=== PATIENT | female | born 2000 | race Caucasian/White ===

== ENCOUNTER 2024-10-08 14:42 | Outpatient (AMB) | payer MEDICAID, SELFPAY ==
[2024-10-08 15:18] VITALS: BP 136/81; PULSE 82; RESP 17; TEMP 37.1; O2SAT 18; BMI 34.8
--- NOTE | 2024-10-08 15:18 | OBCLNT_ITS ---
Vital Signs 10/08/24 15:18 Height 1.55 m Height Method Stated Weight 83.631 kg Weight Measurement Method Standing Scale BMI 34.8 BP 136/81 H Blood Pressure Source Automatic Cuff Blood Pressure Location Right Upper Arm Position Sitting Respiration 17 Pulse 82 Pulse Source Monitor Temp 98.7 F Temp Source Temporal Artery Scan Pulse Oximetry (%) 18 L Oxygen Delivery Method Room Air Allergies/Home Meds Allergies & Medications Allergies No Known Allergies Allergy (Verified 08/22/22 09:45) Medication Reconciliation metformin 500 mg tablet 500 mg PO BIDWMEAL 30 days #60 tabs 06/14/21 [Rx Confirmed 10/08/24] blood sugar diagnostic (Accu-Chek Joi Plus test strips) #50 ea 08/25/22 [Rx Confirmed 10/08/24] lancets 17 gauge (Acti-Philip Lancets) #100 ea 08/25/22 [Rx Confirmed 10/08/24] propranolol 10 mg tablet 10 mg PO QID 30 days #120 tabs 08/25/22 [Rx Confirmed 10/08/24] insulin glargine 100 unit/mL (3 mL) subcutaneous pen (Lantus Solostar U-100 Insulin) 50 unit (0.5 mL) subcut QPM 30 days #15 mL 10/08/24 [Rx Confirmed 10/08/24] Intake Visit Data Collection New Patient or Established: New Patient ([facility]) Reason for Visit:: OB TRANSFER Seen by Clinical Staff ONLY (RN/MA): No Alodize Machine Operator Required: No Do You Feel Safe at Home: Yes Authorities Contacted: N/A PCP or OBGYN visit in last 3 months: No Hx Now: Yes Are you currently on any form of Control: No Pain Present Currently: No Pain Scale Used: Ambrocio-Washburn/Numerical Pain scale:: 0 Smoking Status Smoking Status: Never smoker Questionnaires Covid-19 Vaccine Questionnaire Has patient been vacinated for Covid-19 Have you been vacinated for Covid-19: No PHQ-9 PHQ-2 Over the last 2 weeks, how often have you been bothered by any of the following problems? 1. Little interest or pleasure in doing things: not at all 2. Feeling down, depressed, or hopeless: not at all Total score: 0 PHQ-9 3. Trouble falling or staying asleep, or sleeping too much: Not at all 4. Feeling tired or having little energy: Not at all 5. Poor appetite or overeating: Not at all 6. Feeling bad about yourself - or that you are a failure or have let yourself or your family down: Not at all 7. Trouble concentrating on things, such as reading the newspaper or watching television: Not at all 8. Moving or speaking so slowly that other people could have noticed? - Or the opposite - being so fidgety or restless that you have been moving around a lot more than usual: not at all 9. Thoughts that you would be better off or of hurting yourself in some way: Not at all Total score: 0 If you checked off any problems, how difficult have these problems made it for you to do your work, take care of things at home, or get along with other people?: not difficult at all Source: Developed by Drs. Khurram Mireles, Eula Verdugo, Ashok Norton and colleagues, with an educational shannan from [employer]. Depression screen completed yes Social History Living Situation History Marital Status: Lives With: Family Housing: House Tobacco History Smoking Status: Never smoker Second Hand Smoke Exposure: No Alcohol History Alcohol Intake: Never Domestic Abuse History Do You Feel Safe at Home: Yes History of Present Illness HPI Narrative Lisa Martinez, , presents for routine visit at 30 weeks gestation. Patient has a history of prior delivery. No contractions, LOF, VB and reports good FM. Denies BAER, VC, and epigastric pain. - Lisa Martinez is a 23-year-old female at 30 weeks 0 days gestation presenting for transfer of care from Dr. Walsh. - Obstetric history: - Two previous C-sections (2019 and 2021) - Current : - JAMES: 12/17/2024 - LMP: 03/11/2024 - Consistent with 1st trimester ultrasound - Medical history: - Type 2 diabetes mellitus - Diagnosed approximately 10 years ago - Currently on insulin therapy - Meal-time insulin: 12 units, 3 times daily (36 units total) - Long-acting insulin (Lantus): 45 units at night - Blood glucose levels: - Post-prandial: 150-160 mg/dL - Fasting: up to 140 mg/dL - Chronic hypertension - Current medication: Labetalol 100 mg twice daily - Also taking aspirin - Blood pressure reported as good currently - Denies history of pre-eclampsia in previous pregnancies - 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: Past Medical History Past Medical History: No Hx Neurological Disorders, No Hx Hypothyroidism, No Hx Hyperthyroidism, No Hx Breast Cancer, No Hx Cardiac Disorders, No Hx Hypertension, No Hx Cancer, No Hx Blood Disorders, No Hx Anemia, No Hx Gastrointestinal Disorders, No Hx Renal Disease, No Hx Diabetes Mellitus Type 1 and Yes Hx Diabetes Mellitus Type 2 OB Initial Visit OB Flowsheet OB Flowsheet Initial Weight: Not Recorded Date -?-?-?-?-?-?-?-?-?-?-?-?- EGA Weight BP Alb Glu CTX Pres Fundal ht FHR Mov Dilation Station Effacement Hx Notes Visit Note 10/08/24 -?-?-?-?-?-?-?-?-?-?-?-?- 30w 0d 83.631 kg 136/81 absent 30 150 ac tive 30w0d, , hx of 2 prior C- sections, DM2 on insulin (meal-time 12u TID, Lantus 45u QHS), HTN on labetalol 100 BID + ASA. Reports good FM, no CTX/LOF/VB. FHR 150. BG logs: fasting to 140, postprandial 150?160. Plan: inc rease Lantus to 50u QHS, continue meal insulin, f/u in 1 week, continue twice weekly monitoring, plan C/S 37?38w, continue labetalol, ASA, vitamins, f/u [facility]. Rx sent to [facility]. Menstrual History Menstrual reliability: definite Flow: normal Menstrual regularity: regular Monthly: Yes Age at menarche: 11 On control pills at conception: No OB History : 3 Para: 2 Hx # Pregnancies: 0 Hx Total # of Abortions (Spontaneous & Elective): 0 # of Living Children: 2 Delivery History 1st : Child's name: MARY AGUIRRE date: 08/06[birth year]19 sex: female Gestational age at delivery (weeks): 37 Delivery type: History of depression before or after : No 2nd : Child's name: SANTY AGUIRRE date: 06/12/21 sex: male Gestational age at delivery (weeks): 37 Delivery type: weight (lbs): 3175.147 g History of depression before or after : No Infection History & Risk Evaluation History of STDs: none HIV risk evaluation: low risk Hepatitis B risk evaluation: low risk Patient or partner has history of Genital Herpes: No Varicella/chicken pox status: unknown Genetic Screening & History Genetic Screening/Teratology Counseling - Includes patient, baby's father, or anyone in either family with: 1. Patient's age 35 years or older as of estimated date of delivery: No 2. Thalassemia (Hungarian, Persian, Mediterranean, or Background); MCV less than 80: No 3. Neural Tube Defect (Meningomyelocele, Spina Bifida, or Anencephaly): No 4. Congenital Heart Defect: No 5. Down Syndrome: No 6. Donaldo-Sachs (Ashkenazi Buddhist, Cajun, Hebrew Andorran): No 7. Raudel Disease (Ashkenazi Buddhist): No 8. Familial Dysautonomia (Ashkenazi Buddhist): No 9. Sickle Cell Disease or Trait (): No 10. Hemophilia or other blood disorders: No 11. Muscular Dystrophy: No 12. Cystic Fibrosis: No 13. Taylor's Chorea: No 14. Mental Retardation/Autism: No 15. Other inherited genetic or chromosomal disorder: No 16. Maternal Metabolic Disorder (EG,TYPE 1 Diabetes, PKU): No 17. Patient or baby's father had a child with defects not listed above: No 18. Recurrent loss or a stillbirth: No 19. Medications (including supplements, vitamins, herbs or otc drugs)/illic it/recreational drugs/alcohol since last menstrual period: No 20. Any other: No Infection History 1. Live with someone with TB or exposed to TB: No 2. Rash or viral illness since last menstrual period: No 3. Hepatitis B,C: No Other (see comments) Source: [employer] Exam General General Appearance: alert, in no apparent distress and healthy appearing Head Head exam: atraumatic Neck Neck exam: Present normal inspection and trachea midline Chest Chest inspection: Present normal inspection and symmetric chest wall rise External exam: Present normal external exam; Absent tenderness Neuro Neurological exam: Present oriented X3 Psych Psychiatric exam: Present normal affect and normal mood Office Procedures OB Clinic LOC & Office Proc's Nursing/Assessment Patient Status: Initial/New Patient OB Clinic Nursing Assessment: Medication Reconciliation, Update PMH in EMR and Vital Signs OB Clinic Coordination of Care: Complex Care and Chronic Disease 1-5, Consent,records obtained, informed consent, Education Simp Pt/Fam, Results/Orders obtained and Staff clarify orders Special Needs: Heart tones New Patient Charge New Patient Point Assignment: [id number] New Patient Point Charge: AIRLINE CAPTAIN Level 4 ([id number]) Assessment & Plan Diagnosis / Problem List (1) Supervision of high risk , unspecified, second trimester: Status: Acute (2) Modified White class B pregestational diabetes mellitus: Status: Acute Plan Problem List - Type 2 Diabetes Mellitus - Chronic hypertension - , third trimester - History of two previous sections Assessment 23-year-old at 30 weeks 0 days gestation with history of 2 previous C- sections, presenting with multiple high-risk conditions. Patient has pre- existing Type 2 Diabetes Mellitus, requiring significant insulin therapy (currently on 81 units daily: 45 units long-acting at night, 12 units short- acting with meals). Blood glucose levels are suboptimal with fasting levels up to 140 mg/dL and postprandial levels 150-160 mg/dL. Patient also has chronic hypertension, currently managed with labetalol 100 mg BID and aspirin. Blood pressure is currently stable on this regimen. assessment shows normal heart rate of 150 bpm. Patient is being followed by maternal- medicine at [facility] for growth monitoring. Plan - Increase long-acting insulin (Lantus) from 45 units to 50 units at night - Continue current meal-time insulin at 12 units per meal - Follow up in one week to reassess blood sugar levels and adjust insulin as needed - Continue twice weekly monitoring at the hospital until delivery - Plan for between 37 and 38 weeks gestation due to diabetes - Continue current blood pressure medication (Labetalol 100mg twice daily) - Continue aspirin - Continue vitamins - Attend upcoming appointment at [facility] for growth monitoring - New prescription for increased insulin to be sent to [facility] 1. Progress Reviewed gestational age (30 weeks and 0 days), growth, and heart rate (150 bpm). Planned frequent visits (every 2 weeks until 36 weeks, then weekly). 2. Instructed patient to monitor movements and report decreases immediately. 3. Testing Counseled on routine third-trimester labs per guidelines. Discussed potential need for ultrasound or monitoring based on risk facto rs. 4. Preeclampsia Precaution Educated on preeclampsia signs: severe headache, vision changes, right upper quadrant pain, sudden swelling. Advised urgent reporting of symptoms and discussed blood pressure monitoring if high risk. 5. Labor Precautions Reviewed labor signs: regular contractions, pelvic pressure, back pain, bleeding, or fluid leakage. Instructed to seek immediate care for these symptoms. 6. Lifestyle and Delivery Preparation Reinforced vitamins, nutrition, and safe activity. Discussed plan, pain management, and . Advised on labor preparation (e.g., hospital bag) and expectations. 7. Psychosocial Support Assessed emotional well-being and offered resources for mental health or parenting support.
== END 2024-10-08 15:43 | disposition home or self-care (01) ==
LOC: HODSOBC 14:42
PROVIDERS: PCP Specialist; Referring Provider Specialist; Supervising Provider Obstetrics & Gynecology; Visit Provider Obstetrics & Gynecology
DX: O09.893 Supervision of other high risk pregnancies, third trimester (principal); O24.113 Pre-existing type 2 diabetes mellitus, in pregnancy, third trimester; O10.913 Unspecified pre-existing hypertension complicating pregnancy, third trimester; O09.293 Supervision of pregnancy with other poor reproductive or obstetric history, third trimester; O34.219 Maternal care for unspecified type scar from previous cesarean delivery; Z3A.30 30 weeks gestation of pregnancy; Z79.4 Long term (current) use of insulin; Z79.899 Other long term (current) drug therapy; Z79.82 Long term (current) use of aspirin
CPT/HCPCS: 99204; G0463

== ENCOUNTER 2024-10-14 08:38 | Outpatient (AMB) | payer MEDICAID, SELFPAY ==
[2024-10-14 08:59] VITALS: BP 115/75; PULSE 90; RESP 19; TEMP 36.9; O2SAT 98; BMI 34.0
--- NOTE | 2024-10-14 08:59 | AMB.OBVISIT ---
Vital Signs 10/14/24 08:59 Height 1.55 m Height Method Stated Weight 81.873 kg Weight Measurement Method Standing Scale BMI 34.0 BP 115/75 Blood Pressure Source Automatic Cuff Blood Pressure Location Right Upper Arm Position Sitting Respiration 19 Pulse 90 Pulse Source Monitor Temp 98.4 F Temp Source Temporal Artery Scan Pulse Oximetry (%) 98 Oxygen Delivery Method Room Air Allergies/Home Meds Allergies & Medications Allergies No Known Allergies Allergy (Verified 08/22/22 09:45) Intake Visit Data Collection New Patient or Established: Established Patient (seen at [facility] within 3 years) Reason for Visit:: FOLLOW UP OB CARE Seen by Clinical Staff ONLY (RN/MA): No Commercial Interior Designer Required: No Do You Feel Safe at Home: Yes Authorities Contacted: N/A Primary Care Provider: DR ADAMS PCP or OBGYN visit in last 3 months: Yes Date of Last PCP or OBGYN visit: 10/08/24 Hx Now: Yes Are you currently on any form of Control: No Pain Present Currently: No Smoking Status Smoking Status: Never smoker Questionnaires PHQ-9 PHQ-2 Over the last 2 weeks, how often have you been bothered by any of the following problems? 1. Little interest or pleasure in doing things: not at all PHQ-9 8. Moving or speaking so slowly that other people could have noticed? - Or the opposite - being so fidgety or restless that you have been moving around a lot more than usual: not at all Source: Developed by Drs. Khurram Mireles, Eula Verdugo, Ashok Norton and colleagues, with an educational shannan from [employer]. 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 No contractions, LOF, VB and reports good FM. Denies BAER, VC, and epigastric pain. - Lisa Martinez is a female in her third trimester with gestational diabetes, here for a follow-up visit. - Blood sugar control: - Reports improved blood sugar levels after recent insulin adjustment - Levels now more than 113 , previously lower - Insulin dose change made the night before the visit - status: - Reports baby is active - Denies contractions - Other symptoms: - Denies any other issues - Treatment adherence: - Performing insulin injections as prescribed - Injection sites show minimal bruising, indicating good technique - Monitoring: - Patient instructed to write down blood sugar logs and bring to next visit - Advised to note unusual high numbers and corresponding food intake Care OB Visit Log OB Flowsheet Initial Weight: Not Recorded Date <del>?</del> EGA Weight BP Alb Glu CTX Pres Fundal ht FHR Mov Dilation Station Effacement Hx Notes Visit Note 10/08/24 <del>?</del> 30w 0d 83.631 kg 136/81 absent 30 150 active 30w0d, , hx of 2 prior C-sections, DM2 on insulin (meal-time 12u TID, Lantus 45u QHS), HTN on labetalol 100 BID + ASA. Reports good FM, no CTX/LOF/VB. FHR 150. BG logs: fasting to 140, postprandial 150?160. Plan: increase Lantus to 50u QHS, continue meal insulin, f/u in 1 week, continue twice weekly monitoring, plan C/S 37?38w, continue labetalol, ASA, vitamins, f/u [facility]. Rx sent to [facility]. 10/14/24 <del>?</del> 30w 6d 81.873 kg 115/75 absent unknown 32 155 active Lisa Martinez, , presents at 30w6d for routine care. No CTX, LOF, VB, FM good. Denies BAER, VC, epigastric pain. GDM on insulin with recent dose increase; reports improved sugars now >113. Injections done correctly with minimal bruising. FHR 155. CBC and RPR ordered. Twice weekly monitoring to begin. Plan delivery at 38w if well-controlled, or 37w if not. F/u 1wk with glucose logs, noting any spikes and food intake. JAMES Calculator Estimated Delivery Date Method Current WG Current Estimate 12/17/24 LMP (Certain) 30w 6d Exam General General Appearance: alert, in no apparent distress and healthy appearing Head Head exam: atraumatic Neck Neck exam: Present normal inspection and trachea midline Chest Chest inspection: Present normal inspection and symmetric chest wall rise External exam: Present normal external exam; Absent tenderness Neuro Neurological exam: Present oriented X3 Psych Psychiatric exam: Present normal affect and normal mood Office Procedures OB Clinic LOC & Office Proc's Nursing/Assessment Patient Status: Established Patient OB Clinic Nursing Assessment: BP Monitoring, Medication Reconciliation, Update PMH in EMR and Vital Signs OB Clinic Coordination of Care: Complex Care and Chronic Disease 1-5, Consent,records obtained, informed consent, Lab and Imaging orders and Results/Orders obtained Special Needs: Heart tones Established Patient Charge Established Patient Point Assignment: 125 Established Patient Point Charge: EP Level 4 (120-155) Assessment & Plan Diagnosis / Problem List (1) Maternal care for low transverse scar from previous delivery: Status: Acute (2) Pre-existing type 2 insulin treated diabetes mellitus during : Status: Acute Plan Problem List - Gestational diabetes mellitus - , third trimester Assessment Gestational diabetes mellitus, currently on insulin therapy with improving blood glucose control after recent dose adjustment. Patient reports blood glucose levels have increased from previous readings to >113 mg/dL. Third trimester with normal heart rate of 155 bpm and reported active movement. No contractions or other -related issues noted. Routine labs including CBC and RPR are due. Patient demonstrates proper insulin injection technique with minimal bruising at injection sites. Plan - CBC and RPR ordered for routine anemia and RPR check - Continue current insulin regimen; reassess glucose levels in one week - monitoring at labor and delivery unit twice weekly; patient to await call for appointments - Aim for delivery at 38 weeks if sugars are well-controlled, or 37 weeks if not - Follow up in one week to review glucose logs - Patient instructed to record glucose logs and note any unusual high numbers along with corresponding food intake 1. Progress Reviewed gestational age, growth, and heart rate. Planned frequent visits (every 2 weeks until 36 weeks, then weekly). 2. Instructed patient to monitor movements and report decreases immediately. 3. Testing Counseled on routine third-trimester labs per guidelines. Discussed potential need for ultrasound or monitoring based on risk factors. 4. Preeclampsia Precaution Educated on preeclampsia signs: severe headache, vision changes, right upper quadrant pain, sudden swelling. Advised urgent reporting of symptoms and discussed blood pressure monitoring if high risk. 5. Labor Precautions Reviewed labor signs: regular contractions, pelvic pressure, back pain, bleeding, or fluid leakage. Instructed to seek immediate care for these symptoms. 6. Lifestyle and Delivery Preparation Reinforced vitamins, nutrition, and safe activity. Discussed plan, pain management, and . Advised on labor preparation (e.g., hospital bag) and expectations. 7. Psychosocial Support Assessed emotional well-being and offered resources for mental health or parenting support.
== END 2024-10-14 09:26 | disposition home or self-care (01) ==
LOC: HODSOBC 08:38
PROVIDERS: PCP Specialist; Referring Provider Specialist; Supervising Provider Obstetrics & Gynecology; Visit Provider Obstetrics & Gynecology
DX: O09.293 Supervision of pregnancy with other poor reproductive or obstetric history, third trimester (principal); O34.211 Maternal care for low transverse scar from previous cesarean delivery; O09.893 Supervision of other high risk pregnancies, third trimester; O24.113 Pre-existing type 2 diabetes mellitus, in pregnancy, third trimester; Z3A.30 30 weeks gestation of pregnancy; Z79.4 Long term (current) use of insulin
CPT/HCPCS: 99214; G0463

== ENCOUNTER 2024-10-20 12:54 | Outpatient (AMB) | payer MEDICAID, SELFPAY ==
[2024-10-20 13:07] VITALS: BP 124/83; PULSE 80; RESP 17; TEMP 36.9; O2SAT 99; BMI 34.6
--- NOTE | 2024-10-20 13:07 | OBCLNT_ITS ---
Vital Signs 10/20/24 13:07 Height 1.55 m Height Method Measured Weight 83.121 kg Weight Measurement Method Standing Scale BMI 34.6 BP 124/83 Blood Pressure Source Automatic Cuff Blood Pressure Location Right Upper Arm Position Sitting Respiration 17 Pulse 80 Pulse Source Monitor Temp 98.4 F Temp Source Temporal Artery Scan Pulse Oximetry (%) 99 Oxygen Delivery Method Room Air Allergies/Home Meds Allergies & Medications Allergies No Known Allergies Allergy (Verified 10/20/24 13:08) Medication Reconciliation metformin 500 mg tablet 500 mg PO BIDWMEAL 30 days #60 tabs 06/14/21 [Rx Co nfirmed 10/20/24] blood sugar diagnostic (Accu-Chek Joi Plus test strips) #50 ea 08/25/22 [Rx Confirmed 10/20/24] lancets 17 gauge (Acti-Philip Lancets) #100 ea 08/25/22 [Rx Confirmed 10/20/24] propranolol 10 mg tablet 10 mg PO QID 30 days #120 tabs 08/25/22 [Rx Confirmed 10/20/24] insulin glargine 100 unit/mL (3 mL) subcutaneous pen (Lantus Solostar U-100 Insulin) 60 unit (0.6 mL) subcut QPM 30 days #18 mL 10/20/24 [Rx] insulin lispro 100 unit/mL subcutaneous pen (Humalog KwikPen (U-100) Insulin) 15 unit (0.15 mL) subcut TID 30 days #13.5 mL 10/20/24 [Rx] mv-mn no.97-folic 180 mcg-dha 25 mg-herb no.293 25 mg chewable tablet (Alive Daily Support ) tab PO 10/20/24 [History Confirmed 10/20/24] Intake Visit Data Collection New Patient or Established: Established Patient (seen at [facility] within 3 years) Reason for Visit:: OBC Consent obtained for Telemed Visit: No Seen by Clinical Staff ONLY (RN/MA): No Machinist/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 1. Little interest or pleasure in doing things: not at all PHQ-9 8. Moving or speaking so slowly that other people could have noticed? - Or the opposite - being so fidgety or restless that you have been moving around a lot more than usual: not at all Source: Developed by Drs. Khurram Mireles, Eula Verdugo, Ashok Norton and colleagues, with an educational shannan from [employer]. 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 Past Medical History: No Hx Neurological Disorders, No Hx Hypothyroidism, No Hx Hyperthyroidism, No Hx Breast Cancer, No Hx Cardiac Disorders, No Hx Hypertension, No Hx Cancer, No Hx Blood Disorders, No Hx Anemia, No Hx Gastrointestinal Disorders, No Hx Renal Disease, No Hx Diabetes Mellitus Type 1 and Yes Hx Diabetes Mellitus Type 2 Care OB Visit Log OB Flowsheet Initial Weight: Not Recorded Date -?-?-?-?-?-?-?-?-?-?-?-?- EGA Weight BP Alb Glu CTX Pres Fundal ht FHR Mov Dilation Station Effacement Hx Notes Visit Note 10/08/24 -?-?-?-?-?-?-?-?-?-?-?-?- 30w 0d 83.631 kg 136/81 absent 30 150 ac tive 30w0d, , hx of 2 prior C- sections, DM2 on insulin (meal-time 12u TID, Lantus 45u QHS), HTN on labetalol 100 BID + ASA. Reports good FM, no CTX/LOF/VB. FHR 150. BG logs: fasting to 140, postprandial 150?160. Plan: inc rease Lantus to 50u QHS, continue meal insulin, f/u in 1 week, continue twice weekly monitoring, plan C/S 37?38w, continue labetalol, ASA, vitamins, f/u [facility]. Rx sent to [facility]. 10/14/24 -?-?-?-?-?-?-?-?-?-?-?-?- 30w 6d 81.873 kg 115/75 absent unknown 32 155 active Lisa Martinez, , presents at 30w6d for routine care. No CTX, LOF, VB, FM good. Denies BAER, VC, epigastric pain. GDM on insulin with recent dose increase; reports imp roved sugars now >113. Injections done correctly with minimal bruising. FHR 155. CBC and RPR ordered. Twice weekly monitoring to begin. Plan delivery at 38w if well-controlled, or 37w if not. F/u 1wk with glucose logs, noting any spikes and food intake. 10/20/24 -?-?-?-?-?-?-?-?-?-?-?-?- 31w 5d 83.121 kg 124/83 absent unknown 32 150 active GDM on insulin, 31w5d. FM+, FHR 150. Fasting BG 113, postprandial 156. Plan: Increase insulin to 60u qHS, 15u meals (? to 12u if lows), await anesthesia appt, f/u 2w, monitor FM, RX sent. JAMES Calculator Estimated Delivery Date Method Current WG Current Estimate 12/17/24 LMP (Certain) 32w 0d Notes Visit Date: 10/20/24 Last Updated by: Julio Love MD - Increase nighttime insulin dose from 50 units to 60 units - Increase mealtime insulin dose from 12 units to 15 units Exam General General Appearance: alert, in no apparent distress and healthy appearing Head Head exam: atraumatic Neck Neck exam: Present normal inspection and trachea midline Chest Chest inspection: Present normal inspection and symmetric chest wall rise External exam: Present normal external exam; Absent tenderness Neuro Neurological exam: Present oriented X3 Psych Psychiatric exam: Present normal affect and normal mood Office Procedures OB Clinic LOC & Office Proc's Nursing/Assessment Patient Status: Established Patient OB Clinic Nursing Assessment: Medication Reconciliation, Update PMH in EMR and Vital Signs OB Clinic Coordination of Care: Complex Care and Chronic Disease 1-5, Consent,records obtained, informed consent, Education Simp Pt/Fam and 4+ Authorizations needed Special Needs: Heart tones Established Patient Charge Established Patient Point Assignment: 130 Established Patient Point Charge: EP Level 4 (120-155) Assessment & Plan Diagnosis / Problem List (1) Pre-existing type 2 insulin treated diabetes mellitus during : Status: Acute (2) Modified White class B pregestational diabetes mellitus: Status: Acute Plan Problem List - Gestational diabetes mellitus - , 31 weeks and 5 days Assessment Patient presents for care at 31 weeks and 5 days gestation with gestational diabetes mellitus. Blood glucose levels are suboptimal with fasting glucose of 113 mg/dL (target <100 mg/dL) and postprandial glucose of 156 mg/dL (target <140 mg/dL). Current insulin regimen consists of 50 units at night and 12 units with meals. heart rate auscultated at 150 bpm, which is within normal range. Patient reports movement. Plan - Increase nighttime insulin dose from 50 units to 60 units - Increase mealtime insulin dose from 12 units to 15 units - Target fasting glucose below 100 mg/dL and postprandial glucose below 140 mg/dL - Monitor baby's movements - Attend anesthesia consultation appointments at the hospital (expected to be scheduled from next week) - Follow up in 2 weeks - New insulin prescription to be sent to pharmacy - If glucose levels drop too much, revert mealtime insulin dose to 12 units 1. Progress Reviewed gestational age, growth, and heart rate. Planned frequent visits (every 2 weeks until 36 weeks, then weekly). 2. Instructed patient to monitor movements and report decreases immediately. 3. Testing Counseled on routine third-trimester labs per guidelines. Discussed potential need for ultrasound or monitoring based on risk factors. 4. Preeclampsia Precaution Educated on preeclampsia signs: severe headache, vision changes, right upper quadrant pain, sudden swelling. Advised urgent reporting of symptoms and discussed blood pressure monitoring if high risk. 5. Labor Precautions Reviewed labor signs: regular contractions, pelvic pressure, back pain, bleeding, or fluid leakage. Instructed to seek immediate care for these symptoms. 6. Lifestyle and Delivery Preparation Reinforced vitamins, nutrition, and safe activity. Discussed plan, pain management, and . Advised on labor preparation (e.g., hospital bag) and expectations. 7. Psychosocial Support Assessed emotional well-being and offered resources for mental health or parenting support.
== END 2024-10-20 14:02 | disposition home or self-care (01) ==
LOC: HODSOBC 12:54
PROVIDERS: PCP Specialist; Referring Provider Specialist; Supervising Provider Obstetrics & Gynecology; Visit Provider Obstetrics & Gynecology
DX: O09.893 Supervision of other high risk pregnancies, third trimester (principal); O24.414 Gestational diabetes mellitus in pregnancy, insulin controlled; Z3A.31 31 weeks gestation of pregnancy
CPT/HCPCS: 99214; G0463

== ENCOUNTER 2024-11-10 14:01 | Outpatient (AMB) | payer MEDICAID, SELFPAY ==
[2024-11-10 14:27] VITALS: BP 106/67; PULSE 81; RESP 16; TEMP 36.7; O2SAT 98; BMI 29.2
--- NOTE | 2024-11-10 14:27 | OBCLNT_ITS ---
Vital Signs 11/10/24 14:27 Height 1.55 m Height Method Stated Weight 70.364 kg Weight Measurement Method Standing Scale BMI 29.2 BP 106/67 Blood Pressure Source Automatic Cuff Blood Pressure Location Left Upper Arm Position Sitting Respiration 16 Pulse 81 Pulse Source Monitor Temp 98.0 F Temp Source Oral Pulse Oximetry (%) 98 Oxygen Delivery Method Room Air Allergies/Home Meds Allergies & Medications Allergies No Known Allergies Allergy (Verified 01/13/25 09:08) Medication Reconciliation blood sugar diagnostic (Accu-Chek Joi Plus test strips) #50 ea 08/25/22 [Rx Confirmed 01/13/25] lancets 17 gauge (Acti-Philip Lancets) #100 ea 08/25/22 [Rx Confirmed 01/13/25] propranolol 10 mg tablet 10 mg PO QID 30 days #120 tabs 08/25/22 [Rx Confirmed 01/13/25] Held on 11/26/24. Instructions: Doctor's Order mv-mn no.97-folic 180 mcg-dha 25 mg-herb no.293 25 mg chewable tablet (Alive Daily Support ) 1 tab PO .q day 10/20/24 [History Confirmed 01/13/25] drospirenone 3 mg-ethinyl estradiol 0.02 mg tablet (FABIAN (28)) 1 tab PO QDAY 84 days #84 tabs 01/13/25 [Rx] metformin 500 mg tablet 1,000 mg (2 x 500 mg) PO QDAY 90 days #180 tabs 01/13/25 [Rx] Intake Visit Data Collection New Patient or Established: Established Patient (seen at [facility] within 3 years) Reason for Visit:: CARE Seen by Clinical Staff ONLY (RN/MA): No Dna Sequencing Associate Required: No Do You Feel Safe at Home: Yes Authorities Contacted: N/A PCP or OBGYN visit in last 3 months: Yes Hx Now: Yes Are you currently on any form of Control: No Pain Present Currently: Yes Pain Scale Used: Ambrocio-Washburn/Numerical Pain scale:: 0 Smoking Status Smoking Status: Never smoker Questionnaires Covid-19 Vaccine Questionnaire Has patient been vacinated for Covid-19 Have you been vacinated for Covid-19: Yes PHQ-9 PHQ-2 Over the last 2 weeks, how often have you been bothered by any of the following problems? 1. Little interest or pleasure in doing things: not at all 2. Feeling down, depressed, or hopeless: not at all Total score: 0 PHQ-9 3. Trouble falling or staying asleep, or sleeping too much: Not at all 4. Feeling tired or having little energy: Not at all 5. Poor appetite or overeating: Not at all 6. Feeling bad about yourself - or that you are a failure or have let yourself or your family down: Not at all 7. Trouble concentrating on things, such as reading the newspaper or watching television: Not at all 8. Moving or speaking so slowly that other people could have noticed? - Or the opposite - being so fidgety or restless that you have been moving around a lot more than usual: not at all 9. Thoughts that you would be better off or of hurting yourself in some way: Not at all Total score: 0 Source: Developed by Drs. Khurram Mireles, Eula Verdugo, Ashok Norton and colleagues, with an educational shannan from [employer]. 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 Medical History Past Medical History: No Hx Neurological Disorders, No Hx Hypothyroidism, No Hx Hyperthyroidism, No Hx Breast Cancer, No Hx Cardiac Disorders, No Hx Hypertension, No Hx Cancer, No Hx Blood Disorders, No Hx Anemia, No Hx Gastrointestinal Disorders, No Hx Renal Disease, No Hx Diabetes Mellitus Type 1 and Yes Hx Diabetes Mellitus Type 2 Care OB Visit Log OB Flowsheet Initial Weight: Not Recorded Date -?-?-?-?-?-?-?-?-?-?-?-?- EGA Weight BP Alb Glu CTX Pres Fundal ht FHR Mov Dilation Station Effacement Hx Notes Visit Note 10/08/24 -?-?-?-?-?-?-?-?-?-?-?-?- 30w 0d 83.631 kg 136/81 absent 30 150 ac tive 30w0d, , hx of 2 prior C- sections, DM2 on insulin (meal-time 12u TID, Lantus 45u QHS), HTN on labetalol 100 BID + ASA. Reports good FM, no CTX/LOF/VB. FHR 150. BG logs: fasting to 140, postprandial 150?160. Plan: in crease Lantus to 50u QHS, continue meal insulin, f/u in 1 week, continue twice weekly monitoring, plan C/S 37?38w, continue labetalol, ASA, vitamins, f/u [facility]. Rx sent to [facility]. 10/14/24 -?-?-?-?-?-?-?-?-?-?-?-?- 30w 6d 81.873 kg 115/75 absent unknown 32 155 active Lisa Martinez, , presents at 30w6d for routine care. No CTX, LOF, VB, FM good. Denies BAER, VC, epigastric pain. GDM on insulin with recent dose increase; reports improved sugars now >113. Injections done correctly with minimal bruising. FHR 155. CBC and RPR ordered. Twice weekly monitoring to begin. Plan delivery at 38w if well-controlled, or 37w if not. F/u 1wk with glucose logs, noting any spikes and food intake. 10/20/24 -?-?-?-?-?-?-?-?-?-?-?-?- 31w 5d 83.121 kg 124/83 absent unknown 32 150 active GDM on insulin, 31w5d. FM+, FHR 150. Fasting BG 113, postprandial 156. Plan: Increase insulin to 60u qHS, 15u meals (? to 12u if lows), await anesthesia appt, f/u 2w, monitor FM, RX sent. 11/10/24 -?-?-?-?-?-?-?-?-?-?-?-?- 34w 5d 70.364 kg 106/67 absent unknown 35 170 active - Blood sugar control: - Fasting blood sugars have been impro vin, 148, 120, 118, 120, 96, 116, 99, 96, 92, 90 mg/dL - Post-prandial blood sugars: 130, 158 , 148 mg/dL - Hypertension management: - Recently started blood pressure medi cation - Dose of labetalol increased to 200 m g twice daily last week - Patient reports adherence to insulin r egimen: - 60 units at night - 15 units with meals - Denies any new symptoms or concerns - Maintain current insulin regimen (60 units at night, 15 units with meals) - Continue labetalol 200mg twice daily f or blood pressure management - Weekly follow-up visits to monitor blo od pressure closely - scheduled for 12/01 at 12:30 at 37w4d - Next week, confirm details - Continue NST (Non-Stress Test) monitor ing on Mondays and - Follow up in one week 11/17/24 -?-?-?-?-?-?-?-?-?-?-?-?- 35w 5d 87.146 kg 128/80 absent unknown 36 135 active - Diabetes management: - Current insulin regimen: 60 units at bedtime and 15 units with meals - Fasting blood sugars: 117, 110, 126 mg/dL, reported as still running a little high - Mealtime blood sugar numbers reporte d as pretty good - Hypertension: - Patient reports being in the [facility] yesterday for anesthesia consultation - Blood pressure was noted to be high, but not too high - Currently taking labetalol for blood pressure management - Increase insulin dosage to 70 units total, split into 35 units in the morning and 35 units at night - Continue current mealtime insulin dosa ge - Schedule at 38 weeks maximum due to diabetes management - Perform Group B Streptococcus (GBS) sw ab - Book 01/04@07:30 - Monitor blood pressure closely due to recent high readings in hospital 11/24/24 -?-?-?-?-?-?-?-?-?-?-?-?- 36w 5d 86.863 kg 135/84 absent unknown 36 150 active - Patient is scheduled for a next week Saturday. - This is her third section. - She has been attending Non-Stress Test (NST) appointments: - Last attended on Saturday and the prev ious Saturday - Received a letter from the hospital indicating she missed the last 2 appointments - Patient is considering tubal ligation during the . - scheduled for next Saturday - Patient to check in at 5:30 AM on the day of - No food, drink, or medications after 1 0 PM the night before - Continue attending NST (non-stress rubia t) appointments twice a week - Patient's partner to obtain disability paperwork from [facility] office - Patient to complete 1st and 3rd pages of disability paperwork, physician to complete 2nd page - Consent for tubal ligation to be backd ated to October (30 days prior to surgery) - No further appointments at the clinic before [facility] Calculator Estimated Delivery Date Method Current WG Current Estimate 12/17/24 LMP (Certain) 44w 5d Notes Visit Date: 10/20/24 Last Updated by: Julio Love MD - Increase nighttime insulin dose from 50 units to 60 units - Increase mealtime insulin dose from 12 units to 15 units Assessment & Plan Diagnosis / Problem List (1) Obesity affecting in third trimester: Status: Acute Qualifiers: Obesity type affecting : other obesity Qualified Code(s): O99.213 - Obesity complicating , third trimester; E66.89 - Other obesity not elsewhere classified (2) Pre-existing type 2 insulin treated diabetes mellitus during : Status: Acute Plan Problem List - Type 2 Diabetes Mellitus - Hypertension - , third trimester Assessment 33-week patient with type 2 diabetes mellitus on insulin therapy, currently well-controlled with fasting blood glucose ranging from 90-148 mg/dL and postprandial levels between 130-158 mg/dL. Patient has chronic hypertension managed with labetalol 200 mg BID, recently increased. Current blood pressure is within normal limits. heart rate is 170 bpm, which is within normal range. Due to comorbid diabetes and hypertension, potential for 37-week section is being considered. Plan - Maintain current insulin regimen (60 units at night, 15 units with meals) - Continue labetalol 200mg twice daily for blood pressure management - Weekly follow-up visits to monitor blood pressure closely - scheduled for 12/01 at 12:30 at 37w4d - Next week, confirm details - Continue NST (Non-Stress Test) monitoring on Mondays and - Follow up in one week 1. Progress Reviewed gestational age, growth, and heart rate. Planned frequent visits (every 2 weeks until 36 weeks, then weekly). 2. Instructed patient to monitor movements and report decreases immediately. 3. Testing Counseled on routine third-trimester labs per guidelines. Discussed potential need for ultrasound or monitoring based on risk factors. 4. Preeclampsia Precaution Educated on preeclampsia signs: severe headache, vision changes, right upper quadrant pain, sudden swelling. Advised urgent reporting of symptoms and discussed blood pressure monitoring if high risk. 5. Labor Precautions Reviewed labor signs: regular contractions, pelvic pressure, back pain, bleeding, or fluid leakage. Instructed to seek immediate care for these symptoms. 6. Lifestyle and Delivery Preparation Reinforced vitamins, nutrition, and safe activity. Discussed plan, pain management, and . Advised on labor preparation (e.g., hospital bag) and expectations. 7. Psychosocial Support Assessed emotional well-being and offered resources for mental health or parenting support.
== END 2024-11-10 15:02 | disposition home or self-care (01) ==
LOC: HODSOBC 14:01
PROVIDERS: PCP Specialist; Referring Provider Specialist; Supervising Provider Obstetrics & Gynecology; Visit Provider Obstetrics & Gynecology
DX: O09.893 Supervision of other high risk pregnancies, third trimester (principal); O99.213 Obesity complicating pregnancy, third trimester; O24.113 Pre-existing type 2 diabetes mellitus, in pregnancy, third trimester; O10.913 Unspecified pre-existing hypertension complicating pregnancy, third trimester; Z3A.34 34 weeks gestation of pregnancy; Z79.4 Long term (current) use of insulin; Z79.899 Other long term (current) drug therapy
CPT/HCPCS: 99214; G0463

== ENCOUNTER 2024-11-16 19:41 | Observation (INO) | payer MEDICAID, SELFPAY ==
[2024-11-16] VITALS (16 sets, daily range): BP systolic 134–162; BP diastolic 69–90; PULSE 72–88; RESP 18; TEMP 36.8; O2SAT 97–99
[2024-11-16] MEDS: LABETALOL INJ 5 MG/ML VIAL 20 ML 20 MG IVP (19:48)
[2024-11-16] MEDS: LABETALOL 100 MG TABLET 200 MG PO (20:17)
== END 2024-11-16 21:10 | disposition home or self-care (01) ==
PROVIDERS: Admitting Provider Obstetrics & Gynecology; Visit Provider Obstetrics & Gynecology
DX: O26.893 Other specified pregnancy related conditions, third trimester (principal); Z3A.35 35 weeks gestation of pregnancy; R03.0 Elevated blood-pressure reading, without diagnosis of hypertension
CPT/HCPCS: 36415; 59899; 86850; 86900; 86901; J3490; A9270; J1920

== ENCOUNTER 2024-11-17 15:17 | Outpatient (AMB) | payer MEDICAID, SELFPAY ==
--- NOTE | 2024-11-17 15:59 | OBCLNT_ITS ---
Vital Signs 11/17/24 16:06 Height 1.6 m Height Method Stated Weight 87.146 kg Weight Measurement Method Standing Scale BMI 34.0 BP 128/80 Blood Pressure Source Automatic Cuff Blood Pressure Location Left Upper Arm Position Sitting Respiration 16 Pulse 84 Pulse Source Monitor Temp 98.5 F Temp Source Oral Pulse Oximetry (%) 97 Oxygen Delivery Method Room Air Allergies/Home Meds Allergies & Medications Allergies No Known Allergies Allergy (Verified 12/09/24 09:23) Medication Reconciliation metformin 500 mg tablet 500 mg PO BIDWMEAL 30 days #60 tabs 06/14/21 [Rx Confirmed 12/09/24] Held on 11/26/24. Instructions: Doctor's Order blood sugar diagnostic (Accu-Chek Joi Plus test strips) #50 ea 08/25/22 [Rx Confirmed 12/09/24] lancets 17 gauge (Acti-Philip Lancets) #100 ea 08/25/22 [Rx Confirmed 12/09/24] propranolol 10 mg tablet 10 mg PO QID 30 days #120 tabs 08/25/22 [Rx Confirmed 12/09/24] Held on 11/26/24. Instructions: Doctor's Order insulin glargine 100 unit/mL (3 mL) subcutaneous pen (Lantus Solostar U-100 Insulin) 60 unit (0.6 mL) subcut QPM 30 days #18 mL 10/20/24 [Rx Confirmed 12/09/24] insulin lispro 100 unit/mL subcutaneous pen (Humalog KwikPen (U-100) Insulin) 15 unit (0.15 mL) subcut TID 30 days #13.5 mL 10/20/24 [Rx Confirmed 12/09/24] mv-mn no.97-folic 180 mcg-dha 25 mg-herb no.293 25 mg chewable tablet (Alive Daily Support ) 1 tab PO .q day 10/20/24 [History Confirmed 12/09/24] Lantus 16 units SCi HS 30 days #10 mL 11/26/24 [Rx Confirmed 12/09/24] Lantus 16 units SCi QAM 30 days #10 mL 11/26/24 [Rx Confirmed 12/09/24] insulin lispro 100 unit/mL subcutaneous solution 8 unit (0.08 mL) SCi TIDWMEAL 30 days #7.2 mL 11/26/24 [Rx Confirmed 12/09/24] labetalol 400 mg tablet 400 mg PO BID 30 days #60 tabs 11/26/24 [Rx Confirmed 12/09/24] Intake Visit Data Collection New Patient or Established: Established Patient (seen at [facility] within 3 years) Reason for Visit:: CARE Seen by Clinical Staff ONLY (RN/MA): No Patent Law Specialist Required: No Do You Feel Safe at Home: Yes Authorities Contacted: N/A PCP or OBGYN visit in last 3 months: Yes Hx Now: Yes Are you currently on any form of Control: No Pain Present Currently: Yes Pain Scale Used: Ambrocio-Washburn/Numerical Pain scale:: 0 Smoking Status Smoking Status: Never smoker Questionnaires Covid-19 Vaccine Questionnaire Has patient been vacinated for Covid-19 Have you been vacinated for Covid-19: Yes PHQ-9 PHQ-2 Over the last 2 weeks, how often have you been bothered by any of the following problems? 1. Little interest or pleasure in doing things: not at all 2. Feeling down, depressed, or hopeless: not at all Total score: 0 PHQ-9 3. Trouble falling or staying asleep, or sleeping too much: Not at all 4. Feeling tired or having little energy: Not at all 5. Poor appetite or overeating: Not at all 6. Feeling bad about yourself - or that you are a failure or have let yourself or your family down: Not at all 7. Trouble concentrating on things, such as reading the newspaper or watching television: Not at all 8. Moving or speaking so slowly that other people could have noticed? - Or the opposite - being so fidgety or restless that you have been moving around a lot more than usual: not at all 9. Thoughts that you would be better off or of hurting yourself in some way: Not at all Total score: 0 Source: Developed by Drs. Khurram Mireles, Eula Verdugo, Ashok Norton and colleagues, with an educational shannan from [employer]. 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- 30w 0d 83.631 kg 136/81 absent 30 150 ac tive 30w0d, , hx of 2 prior C- sections, DM2 on insulin (meal-time 12u TID, Lantus 45u QHS), HTN on labetalol 100 BID + ASA. Reports good FM, no CTX/LOF/VB. FHR 150. BG logs: fasting to 140, postprandial 150?160. Plan: inc rease Lantus to 50u QHS, continue meal insulin, f/u in 1 week, continue twice weekly monitoring, plan C/S 37?38w, continue labetalol, ASA, vitamins, f/u [facility]. Rx sent to [facility]. 10/14/24 -?-?-?-?-?-?-?-?-?-?-?-?- 30w 6d 81.873 kg 115/75 absent unknown 32 155 active Lisa Martinez, , presents at 30w6d for routine care. No CTX, LOF, VB, FM good. Denies BAER, VC, epigastric pain. GDM on insulin with recent dose increase; reports improved sugars now >113. Injections done correctly with minimal bruising. FHR 155. CBC and RPR ordered. Twice weekly monitoring to begin. Plan delivery at 38w if well-controlled, or 37w if not. F/u 1wk with glucose logs, noting any spikes and food intake. 10/20/24 -?-?-?-?-?-?-?-?-?-?-?-?- 31w 5d 83.121 kg 124/83 absent unknown 32 150 active GDM on insulin, 31w5d. FM+, FHR 150. Fasting BG 113, postprandial 156. Plan: Increase insulin to 60u qHS, 15u meals (? to 12u if lows), await anesthesia appt, f/u 2w, monitor FM, RX sent. 11/17/24 -?-?-?-?-?-?-?-?-?-?-?-?- 35w 5d 87.146 kg 128/80 absent unknown 36 135 active - Diabetes management: - Current insulin regimen: 60 units at bedtime and 15 units with meals - Fasting blood sugars: 117, 110, 126 mg/dL, reported as still running a little high - Mealtime blood sugar numbers reporte d as pretty good - Hypertension: - Patient reports being in the [facility] yesterday for anesthesia consultation - Blood pressure was noted to be high, but not too high - Currently taking labetalol for blood pressure management - Increase insulin dosage to 70 units total, split into 35 units in the morning and 35 units at night - Continue current mealtime insulin dosa ge - Schedule at 38 weeks maximum due to diabetes management - Perform Group B Streptococcus (GBS) sw ab - Book 01/04@07:30 - Monitor blood pressure closely due to recent high readings in hospital 11/24/24 -?-?-?-?-?-?-?-?-?-?-?-?- 36w 5d 86.863 kg 135/84 absent unknown 36 150 active - Patient is scheduled for a next week Saturday. - This is her third section. - She has been attending Non-Stress Test (NST) appointments: - Last attended on Saturday and the prev ious Saturday - Received a letter from the hospital indicating she missed the last 2 appointments - Patient is considering tubal ligation during the . - scheduled for next Saturday - Patient to check in at 5:30 AM on the day of - No food, drink, or medications after 1 0 PM the night before - Continue attending NST (non-stress rubia t) appointments twice a week - Patient's partner to obtain disability paperwork from [facility] office - Patient to complete 1st and 3rd pages of disability paperwork, physician to complete 2nd page - Consent for tubal ligation to be backd ated to October (30 days prior to surgery) - No further appointments at the clinic before JAMES Calculator Estimated Delivery Date Method Current WG Current Estimate 12/17/24 LMP (Certain) 39w 5d Notes Visit Date: 10/20/24 Last Updated by: Julio Love MD - Increase nighttime insulin dose from 50 units to 60 units - Increase mealtime insulin dose from 12 units to 15 units Office Procedures OB Clinic LOC & Office Proc's Nursing/Assessment Patient Status: Established Patient OB Clinic Nursing Assessment: Medication Reconciliation, Update PMH in EMR and Vital Signs OB Clinic Coordination of Care: Complex Care and Chronic Disease 1-5, Consent,records obtained, informed consent, Education Simp Pt/Fam, 1 Ins Authorization, Lab and Imaging orders, Results/Orders obtained and Staff clarify orders Special Needs: Heart tones Miscellaneous Interventions: Culture Specimen Collection Established Patient Charge Established Patient Point Assignment: 165 Established Patient Point Charge: EP Level 5 (160-above) Assessment & Plan Diagnosis / Problem List (1) delivery delivered: Status: Acute (2) Obesity affecting in third trimester: Status: Acute Qualifiers: Obesity type affecting : other obesity Qualified Code(s): O99.213 - Obesity complicating , third trimester; E66.89 - Other obesity not elsewhere classified (3) History of delivery: Status: Acute
[2024-11-17 16:06] VITALS: BP 128/80; PULSE 84; RESP 16; TEMP 36.9; O2SAT 97; BMI 34.0
== END 2024-11-17 16:49 | disposition home or self-care (01) ==
LOC: HODSOBC 15:17
PROVIDERS: Supervising Provider Obstetrics & Gynecology; Visit Provider Obstetrics & Gynecology
DX: O09.293 Supervision of pregnancy with other poor reproductive or obstetric history, third trimester (principal); O34.219 Maternal care for unspecified type scar from previous cesarean delivery; O09.893 Supervision of other high risk pregnancies, third trimester; O99.213 Obesity complicating pregnancy, third trimester; O24.113 Pre-existing type 2 diabetes mellitus, in pregnancy, third trimester; Z3A.35 35 weeks gestation of pregnancy; O10.913 Unspecified pre-existing hypertension complicating pregnancy, third trimester; Z36.85 Encounter for antenatal screening for Streptococcus B; Z79.84 Long term (current) use of oral hypoglycemic drugs; Z79.899 Other long term (current) drug therapy; Z79.4 Long term (current) use of insulin
CPT/HCPCS: 99215; G0463

== ENCOUNTER 2024-11-17 17:17 | Outpatient (CLI) | payer MEDICAID, SELFPAY ==
[2024-11-17] VITALS (9 sets, daily range): BP systolic 140; BP diastolic 85; PULSE 68–82; RESP 17–100; TEMP 37.2; O2SAT 100; BMI 36.4
[2024-11-17] MEDS: BETAMET ACET/BETAMET NA PH (Celestone) 6 MG/ML VIAL 12 MG IM (17:52)
== END 2024-11-17 18:08 | disposition home or self-care (01) ==
LOC: S4S1 17:19 → S4SX 17:20
PROVIDERS: Referring Provider Obstetrics & Gynecology; Visit Provider Obstetrics & Gynecology
DX: Z34.83 Encounter for supervision of other normal pregnancy, third trimester (principal); Z36.9 Encounter for antenatal screening, unspecified; Z3A.35 35 weeks gestation of pregnancy
CPT/HCPCS: 59025; 96372; J0702

== ENCOUNTER 2024-11-24 12:58 | Outpatient (AMB) | payer MEDICAID, SELFPAY ==
[2024-11-24 13:09] VITALS: BP 135/84; PULSE 79; RESP 16; TEMP 36.9; O2SAT 97; BMI 36.1
--- NOTE | 2024-11-24 13:09 | OBCLNT_ITS ---
Vital Signs 11/24/24 13:09 Height 1.55 m Height Method Stated Weight 86.863 kg Weight Measurement Method Standing Scale BMI 36.1 BP 135/84 H Blood Pressure Source Automatic Cuff Blood Pressure Location Left Upper Arm Position Sitting Respiration 16 Pulse 79 Pulse Source Monitor Temp 98.5 F Temp Source Oral Pulse Oximetry (%) 97 Oxygen Delivery Method Room Air Allergies/Home Meds Allergies & Medications Allergies No Known Allergies Allergy (Verified 12/09/24 09:23) Medication Reconciliation metformin 500 mg tablet 500 mg PO BIDWMEAL 30 days #60 tabs 06/14/21 [Rx Confirmed 12/09/24] Held on 11/26/24. Instructions: Doctor's Order blood sugar diagnostic (Accu-Chek Joi Plus test strips) #50 ea 08/25/22 [Rx Confirmed 12/09/24] lancets 17 gauge (Acti-Philip Lancets) #100 ea 08/25/22 [Rx Confirmed 12/09/24] propranolol 10 mg tablet 10 mg PO QID 30 days #120 tabs 08/25/22 [Rx Confirmed 12/09/24] Held on 11/26/24. Instructions: Doctor's Order insulin glargine 100 unit/mL (3 mL) subcutaneous pen (Lantus Solostar U-100 Insulin) 60 unit (0.6 mL) subcut QPM 30 days #18 mL 10/20/24 [Rx Confirmed 12/09/24] insulin lispro 100 unit/mL subcutaneous pen (Humalog KwikPen (U-100) Insulin) 15 unit (0.15 mL) subcut TID 30 days #13.5 mL 10/20/24 [Rx Confirmed 12/09/24] mv-mn no.97-folic 180 mcg-dha 25 mg-herb no.293 25 mg chewable tablet (Alive Daily Support ) 1 tab PO .q day 10/20/24 [History Confirmed 12/09/24] Lantus 16 units SCi HS 30 days #10 mL 11/26/24 [Rx Confirmed 12/09/24] Lantus 16 units SCi QAM 30 days #10 mL 11/26/24 [Rx Confirmed 12/09/24] insulin lispro 100 unit/mL subcutaneous solution 8 unit (0.08 mL) SCi TIDWMEAL 30 days #7.2 mL 11/26/24 [Rx Confirmed 12/09/24] labetalol 400 mg tablet 400 mg PO BID 30 days #60 tabs 11/26/24 [Rx Confirmed 12/09/24] Intake Visit Data Collection New Patient or Established: Established Patient (seen at [facility] within 3 years) Reason for Visit:: CARE Seen by Clinical Staff ONLY (RN/MA): No Chiropractor Assistant Required: No Do You Feel Safe at Home: Yes Authorities Contacted: N/A PCP or OBGYN visit in last 3 months: Yes Hx Now: Yes Are you currently on any form of Control: No Pain Present Currently: Yes Pain Scale Used: Ambrocio-Washburn/Numerical Pain scale:: 0 Smoking Status Smoking Status: Never smoker Questionnaires Covid-19 Vaccine Questionnaire Has patient been vacinated for Covid-19 Have you been vacinated for Covid-19: Yes PHQ-9 PHQ-2 Over the last 2 weeks, how often have you been bothered by any of the following problems? 1. Little interest or pleasure in doing things: not at all 2. Feeling down, depressed, or hopeless: not at all Total score: 0 PHQ-9 3. Trouble falling or staying asleep, or sleeping too much: Not at all 4. Feeling tired or having little energy: Not at all 5. Poor appetite or overeating: Not at all 6. Feeling bad about yourself - or that you are a failure or have let yourself or your family down: Not at all 7. Trouble concentrating on things, such as reading the newspaper or watching television: Not at all 8. Moving or speaking so slowly that other people could have noticed? - Or the opposite - being so fidgety or restless that you have been moving around a lot more than usual: not at all 9. Thoughts that you would be better off or of hurting yourself in some way: Not at all Total score: 0 Source: Developed by Drs. Khurram Mireles, Eula Verdugo, Ashok Norton and colleagues, with an educational shannan from [employer]. 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- 30w 0d 83.631 kg 136/81 absent 30 150 ac tive 30w0d, , hx of 2 prior C- sections, DM2 on insulin (meal-time 12u TID, Lantus 45u QHS), HTN on labetalol 100 BID + ASA. Reports good FM, no CTX/LOF/VB. FHR 150. BG logs: fasting to 140, postprandial 150?160. Plan: inc rease Lantus to 50u QHS, continue meal insulin, f/u in 1 week, continue twice weekly monitoring, plan C/S 37?38w, continue labetalol, ASA, vitamins, f/u [facility]. Rx sent to [facility]. 10/14/24 -?-?-?-?-?-?-?-?-?-?-?-?- 30w 6d 81.873 kg 115/75 absent unknown 32 155 active Lisa Martinez, , presents at 30w6d for routine care. No CTX, LOF, VB, FM good. Denies BAER, VC, epigastric pain. GDM on insulin with recent dose increase; reports improved sugars now >113. Injections done correctly with minimal bruising. FHR 155. CBC and RPR ordered. Twice weekly monitoring to begin. Plan delivery at 38w if well-controlled, or 37w if not. F/u 1wk with glucose logs, noting any spikes and food intake. 10/20/24 -?-?-?-?-?-?-?-?-?-?-?-?- 31w 5d 83.121 kg 124/83 absent unknown 32 150 active GDM on insulin, 31w5d. FM+, FHR 150. Fasting BG 113, postprandial 156. Plan: Increase insulin to 60u qHS, 15u meals (? to 12u if lows), await anesthesia appt, f/u 2w, monitor FM, RX sent. 11/24/24 -?-?-?-?-?-?-?-?-?-?-?-?- 36w 5d 86.863 kg 135/84 absent unknown 36 150 active - Patient is scheduled for a next week Saturday. - This is her third section. - She has been attending Non-Stress Test (NST) appointments: - Last attended on Saturday and the prev ious Saturday - Received a letter from the hospital indicating she missed the last 2 appointments - Patient is considering tubal ligation during the . - scheduled for next Saturday - Patient to check in at 5:30 AM on the day of - No food, drink, or medications after 1 0 PM the night before - Continue attending NST (non-stress rubia t) appointments twice a week - Patient's partner to obtain disability paperwork from [facility] office - Patient to complete 1st and 3rd pages of disability paperwork, physician to complete 2nd page - Consent for tubal ligation to be backd ated to October (30 days prior to surgery) - No further appointments at the clinic before JAMES Calculator Estimated Delivery Date Method Current WG Current Estimate 12/17/24 LMP (Certain) 39w 5d Notes Visit Date: 10/20/24 Last Updated by: Julio Love MD - Increase nighttime insulin dose from 50 units to 60 units - Increase mealtime insulin dose from 12 units to 15 units Office Procedures OB Clinic LOC & Office Proc's Nursing/Assessment Patient Status: Established Patient OB Clinic Nursing Assessment: Medication Reconciliation, Update PMH in EMR and Vital Signs OB Clinic Coordination of Care: Complex Care and Chronic Disease 1-5, Consent,records obtained, informed consent, Education Simp Pt/Fam, Lab and Imaging orders and Staff clarify orders Special Needs: Heart tones Established Patient Charge Established Patient Point Assignment: 130 Established Patient Point Charge: EP Level 4 ([id number]) Assessment & Plan Diagnosis / Problem List (1) Obesity affecting in third trimester: Status: Acute Qualifiers: Obesity type affecting : other obesity Qualified Code(s): O99.213 - Obesity complicating , third trimester; E66.89 - Other obe sity not elsewhere classified (2) History of delivery: Status: Acute
== END 2024-11-24 13:50 | disposition home or self-care (01) ==
LOC: HODSOBC 12:58
PROVIDERS: Supervising Provider Obstetrics & Gynecology; Visit Provider Obstetrics & Gynecology
DX: O09.293 Supervision of pregnancy with other poor reproductive or obstetric history, third trimester (principal); O34.219 Maternal care for unspecified type scar from previous cesarean delivery; O09.893 Supervision of other high risk pregnancies, third trimester; O99.213 Obesity complicating pregnancy, third trimester; O24.113 Pre-existing type 2 diabetes mellitus, in pregnancy, third trimester; O10.913 Unspecified pre-existing hypertension complicating pregnancy, third trimester; Z3A.36 36 weeks gestation of pregnancy
CPT/HCPCS: 99214; G0463

== ENCOUNTER 2024-11-26 14:46 | Outpatient (RCR) | payer MEDICAID, SELFPAY ==
--- NOTE | 2024-11-05 15:13 | XR_ITS ---
Examination: Biophysical profile, ultrasound Date and time of exam: November 05, 2024 1515 hours INDICATIONS: Type 2 diabetes, history Technique: Multiple transabdominal sonographic images of the pelvis abdomen obtained. Attention is directed to the breathing movement, gross body movement, amniotic fluid volume and tone. Findings: Amniotic fluid index 11.1 cm Total biophysical profile is 8 of 8. breathing movement is 2. Gross body movement is 2. tone is 2. Qualitative amniotic fluid volume is 2 Impression: Biophysical profile is 8 of 8.
[2024-11-05 15:48] VITALS: BP 139/87; PULSE 90; RESP 16; TEMP 36.7
--- NOTE | 2024-11-09 15:13 | XR_ITS ---
Examination: Biophysical profile, ultrasound Date and time of exam: November 09, 2024 1516 hours INDICATIONS: Type 2 diabetes Technique: Multiple transabdominal sonographic images of the pelvis abdomen obtained. Attention is directed to the breathing movement, gross body movement, amniotic fluid volume and tone. Findings: Amniotic fluid index 9.6 cm Total biophysical profile is 8 of 8. breathing movement is 2. Gross body movement is 2. tone is 2. Qualitative amniotic fluid volume is 2 Impression: Biophysical profile is 8 of 8.
[2024-11-09 15:40] VITALS: BP 135/80; PULSE 84; RESP 16; TEMP 36.7
[2024-11-16] VITALS (7 sets, daily range): BP systolic 127–183; BP diastolic 73–101; PULSE 66–78; RESP 16–20
--- NOTE | 2024-11-16 15:14 | XR_ITS ---
Examination: Biophysical profile, ultrasound Date and time of exam: November 16, 2024 1512 hours Diagnosis pre-existing diabetes, diagnosis preexisting C-sections Technique: Multiple transabdominal sonographic images of the pelvis abdomen obtained. Attention is directed to the breathing movement, gross body movement, amniotic fluid volume and tone. Findings: Amniotic fluid index 12.3 cm Total biophysical profile is 8 of 8. breathing movement is 2. Gross body movement is 2. tone is 2. Qualitative amniotic fluid volume is 2 Impression: Biophysical profile is 8 of 8.
[2024-11-16 16:57] LABS: Basophils # (Auto) 0.0 Thou/mm3 (0.0-0.2); Basophils % (Auto) 0 % (0-2.5); Eosinophils # (Auto) 0.1 Thou/mm3 (0.0-0.5); Eosinophils % (Auto) 1 % (0-10); Hematocrit 32.5 % (36.0-46.0); Hemoglobin 10.8 g/dL (12.0-16.0); Immature Granulocytes Auto 0.03 Thou/mm3 (0.00-0.00); Lymphocytes # (Auto) 2.4 Thou/mm3 (1.0-4.8); Lymphocytes % (Auto) 29 % (10-50); Mean Corpuscular HGB Conc 33.2 g/dl (31.0-37.0); Mean Corpuscular Hemoglobin 31.3 pg (25.0-35.0); Mean Corpuscular Volume 94 fL (80-100); Monocytes # (Auto) 0.5 Thou/mm3 (0.0-0.8); Monocytes % (Auto) 6 % (0-12); Neutrophils # (Auto) 5.1 Thou/mm3 (1.8-7.7); Neutrophils % (Auto) 64 % (37-80); Nucleated Red Blood Cell # 0.00 Thou/mm3 (0.00-0.00); Nucleated Red Blood Cell % 0 /100 WBC (0); Platelet Count 224 Thou/mm3 (140-440); RDW Standard Deviation 43.9 fL (36.4-46.3); Red Blood Count 3.45 Miln/mm3 (4.00-5.20); White Blood Count 8.1 Thou/mm3 (3.6-11.0)
[2024-11-16] MEDS: BETAMET ACET/BETAMET NA PH (Celestone) 6 MG/ML VIAL 12 MG IM (17:10)
[2024-11-16 17:11] LABS: Glucose Estimated Average 180 mg/dL (80-131); Hemoglobin A1C 7.9 % Hgb (4.8-6.0)
--- NOTE | 2024-11-16 17:26 | PC.NURSE ---
Dr Tanner notified of one severe BP, followed by a normal BP
[2024-11-16 17:39] LABS: Alanine Aminotransferase 11 U/L (10-49); Albumin, Serum 3.6 gm/dL (3.5-5.0); Albumin/Globulin Ratio 1.5 (1.2-2.2); Alkaline Phosphatase 158 U/L (46-116); Anion Gap 9 (7-16); Aspartate Amino Transferase 21 U/L (0-34); BUN/Creatinine Ratio 17 Ratio (12-20); Bilirubin,Total < 0.2 mg/dL (0.3-1.2); Blood Urea Nitrogen 10 mg/dL (9-23); Calcium 8.9 mg/dL (8.3-10.6); Calcium (Corrected) 9.2 mg/dL (8.5-10.1); Carbon Dioxide 23.2 mMol/L (20.0-31.0); Chloride 108 mMol/L (98-107); Creatinine (Component) 0.6 mg/dL (0.6-1.3); Globulin 2.4 gm/dL (2.3-3.5); Glucose 82 mg/dL (74-106); LDH (Lactate Dehydrogenase) 158 U/L (120-246); Osmolality,Calculated 277 (275-295); Potassium 4.3 mMol/L (3.4-5.1); Sodium 140 mMol/L (136-145); Total Protein 6.0 gm/dL (5.7-8.2); Uric Acid 5.3 mg/dL (3.1-7.8); eGFR > 60 See Note
[2024-11-16 17:42] LABS: Collection Type, Urine Clean Catch
[2024-11-16 17:53] LABS: Bacteria,Urine Rare; Bilirubin,Urine Negative (Negative); Blood,Urine Negative (Negative); Clarity,Urine Clear (Clear/Hazy); Color,Urine Colorless (Lt Yel-Yel); Glucose, Urine Negative (Negative); Ketones,Urine Negative (Negative); Leukocyte Esterase,Urine Positive (Negative); Nitrite,Urine Negative (Negative); PH,Urine 6.0 (5.0-7.0); Protein,Urine Negative (Neg - Trace); RBC,Urine < 1 /hpf (0-3); Specific Gravity,Urine 1.006 (1.001-1.035); Squamous Epithelial Cell,Urine 3 /hpf (0-5); Urobilinogen,Urine Negative mg/dL (0.0-1.0); WBC,Urine 1 /hpf (0-5)
[2024-11-16 17:57] LABS: Creatinine,Random Urine 24 mg/dL (30-125); Protein Total, Random Urine < 6 mg/dL (1-14)
--- NOTE | 2024-11-16 19:07 | PC.NURSE ---
1900 BP cuff found on pt elbow readjusted and took BP 154/89
[2024-11-16 19:29] LABS: Fibrinogen 430 mg/dL (175-375); INR 0.9 (0.9-1.3); Partial Thromboplastin Time 26.0 Seconds (22.0-36.0); Prothrombin Time 10.4 Seconds (9.0-12.2)
--- NOTE | 2024-11-26 14:53 | XR_ITS ---
Examination: Biophysical profile, ultrasound Date and time of exam: November 26, 2024, 1502 hours INDICATIONS: Pre-existing type 2 diabetes, history Technique: Multiple transabdominal sonographic images of the pelvis abdomen obtained. Attention is directed to the breathing movement, gross body movement, amniotic fluid volume and tone. Findings: Amniotic fluid index 6.8 cm Total biophysical profile is 8 of 8. breathing movement is 2. Gross body movement is 2. tone is 2. Qualitative amniotic fluid volume is 2 Impression: Biophysical profile is 8 of 8.
[2024-11-26 15:40] VITALS: BP 172/93; PULSE 83; RESP 16
[2024-11-26 16:45] VITALS: BP 170/98; PULSE 75
[2024-11-26] MEDS: LABETALOL INJ 5 MG/ML VIAL 20 ML 20 MG IVP ×2 (16:45→17:57)
[2024-11-26 17:08] VITALS: BP 145/70; PULSE 75
[2024-11-26] MEDS: NIFEdipine XL 30 MG TABCR PO (17:08)
[2024-11-26 17:19] LABS: Collection Type, Urine Clean Catch
[2024-11-26 17:32] LABS: Basophils # (Auto) 0.0 Thou/mm3 (0.0-0.2); Basophils % (Auto) 0 % (0-2.5); Eosinophils # (Auto) 0.1 Thou/mm3 (0.0-0.5); Eosinophils % (Auto) 1 % (0-10); Hematocrit 35.0 % (36.0-46.0); Hemoglobin 11.6 g/dL (12.0-16.0); Immature Granulocytes Auto 0.02 Thou/mm3 (0.00-0.00); Lymphocytes # (Auto) 2.4 Thou/mm3 (1.0-4.8); Lymphocytes % (Auto) 25 % (10-50); Mean Corpuscular HGB Conc 33.1 g/dl (31.0-37.0); Mean Corpuscular Hemoglobin 31.4 pg (25.0-35.0); Mean Corpuscular Volume 95 fL (80-100); Monocytes # (Auto) 0.5 Thou/mm3 (0.0-0.8); Monocytes % (Auto) 6 % (0-12); Neutrophils # (Auto) 6.5 Thou/mm3 (1.8-7.7); Neutrophils % (Auto) 68 % (37-80); Nucleated Red Blood Cell # 0.00 Thou/mm3 (0.00-0.00); Nucleated Red Blood Cell % 0 /100 WBC (0); Platelet Count 216 Thou/mm3 (140-440); RDW Standard Deviation 44.5 fL (36.4-46.3); Red Blood Count 3.70 Miln/mm3 (4.00-5.20); White Blood Count 9.6 Thou/mm3 (3.6-11.0)
[2024-11-26 17:46] LABS: Bilirubin,Urine Negative (Negative); Blood,Urine Negative (Negative); Clarity,Urine Clear (Clear/Hazy); Color,Urine Colorless (Lt Yel-Yel); Glucose, Urine Negative (Negative); Ketones,Urine Negative (Negative); Leukocyte Esterase,Urine Negative (Negative); Nitrite,Urine Negative (Negative); PH,Urine 6.0 (5.0-7.0); Protein,Urine Negative (Neg - Trace); RBC,Urine 2 /hpf (0-3); Specific Gravity,Urine 1.006 (1.001-1.035); Squamous Epithelial Cell,Urine 1 /hpf (0-5); Urobilinogen,Urine Negative mg/dL (0.0-1.0); WBC,Urine 1 /hpf (0-5)
[2024-11-26 17:51] LABS: Creatinine,Random Urine 27 mg/dL (30-125); Protein Total, Random Urine < 6 mg/dL (1-14)
[2024-11-26 17:57] VITALS: BP 186/86; PULSE 78
[2024-11-26 17:57] LABS: Syphilis Nonreactive (Nonreactive)
[2024-11-26 18:00] LABS: Alanine Aminotransferase 11 U/L (10-49); Albumin, Serum 3.9 gm/dL (3.5-5.0); Albumin/Globulin Ratio 1.6 (1.2-2.2); Alkaline Phosphatase 191 U/L (46-116); Anion Gap 15 (7-16); Aspartate Amino Transferase 26 U/L (0-34); BUN/Creatinine Ratio 24 Ratio (12-20); Bilirubin,Total < 0.2 mg/dL (0.3-1.2); Blood Urea Nitrogen 19 mg/dL (9-23); Calcium 9.6 mg/dL (8.3-10.6); Calcium (Corrected) 9.7 mg/dL (8.5-10.1); Carbon Dioxide 19.1 mMol/L (20.0-31.0); Chloride 105 mMol/L (98-107); Creatinine (Component) 0.8 mg/dL (0.6-1.3); Globulin 2.4 gm/dL (2.3-3.5); Glucose 102 mg/dL (74-106); LDH (Lactate Dehydrogenase) 297 U/L (120-246); Osmolality,Calculated 279 (275-295); Potassium 4.2 mMol/L (3.4-5.1); Sodium 139 mMol/L (136-145); Total Protein 6.3 gm/dL (5.7-8.2); eGFR > 60 See Note
[2024-11-26 19:00] LABS: Fibrinogen 441 mg/dL (175-375); INR 0.9 (0.9-1.3); Partial Thromboplastin Time 26.1 Seconds (22.0-36.0); Prothrombin Time 10.3 Seconds (9.0-12.2)
[2024-11-26 19:19] LABS: Uric Acid 6.2 mg/dL (3.1-7.8)
== END 2024-11-26 23:59 | disposition home or self-care (01) ==
LOC: S4S1 14:46
PROVIDERS: Obstetrics & Gynecology; Referring Provider Obstetrics & Gynecology; Visit Provider Obstetrics & Gynecology
DX: O34.211 Maternal care for low transverse scar from previous cesarean delivery (principal); O24.313 Unspecified pre-existing diabetes mellitus in pregnancy, third trimester; E11.9 Type 2 diabetes mellitus without complications; Z3A.37 37 weeks gestation of pregnancy; Z79.4 Long term (current) use of insulin
CPT/HCPCS: 36415; 59025; 76819; 80053; 81001; 82570; 83036; 83615; 84156; 84550; 85025; 85384; 85610; 85730; 86780; 86850; 86900; 86901; 96372; 96374; 96376; J0702; J3490; A9270; J1920

== ENCOUNTER 2024-11-26 17:47 | Inpatient (IN) | payer MEDICAID, SELFPAY ==
[2024-11-26] VITALS (20 sets, daily range): BP systolic 123–191; BP diastolic 76–103; PULSE 65–99; RESP 18; TEMP 36.5–36.9; O2SAT 95–98; BMI 33.8; BMI 36.1
[2024-11-26] MEDS: Magnesium Sulfate 4 GM Ivpb 4 GM/50 ML BAG IV (18:15)
--- NOTE | 2024-11-26 18:50 | ESHP_ITS ---
Documentation for date of: 11/26/24 OB Labor/Induct. HPI History of Present Illness Chief complaint: Presented for routine antepartum testing : 3 Para: 2 Term pregnancies: 2 pregnancies: 0 Living children: 2 History of Abortions: Spontaneous and Elective: 0 History of Vaginal deliveries: 0 History of sections: Yes (x2) History of : No Date of last menstrual period: 03/11/24 JAMES: 12/17/24 Gestational Age (weeks): 37 Gestational Age (days): 0 Gestational age based on last menstrual period: 37 History of present illness: Patient presents for routine antepartum testing. No ctx, lof or vaginal bleeding. Normal movement. No BAER, vision changes, or RUQ pain. On presentation, patient has severe range bp's. APFTs are for: -CHTN on labetalol 200mg PO BID -Pre-existing T2DM on Humalog 15u with meals and Lantus 35u qam and qhs (this is the dosing patient endorses taking, office note states lantus 60u qam and qhs). She was diagnosed with T2DM at age 11. She was on metformin prior to . She had an admission in 2022 for DKA with pancreatitis that states T1DM in the discharge summary, but patient adamant that she has T2DM. -Current BMI 36 History of Present Dating criteria: LMP confirmed by 1st trimester US Adequate Care: Yes (with Dr. Walsh then Dr. Love) Narrative: -CHTN on labetalol 200mg PO BID -Pre-existing T2DM on Humalog 15u with meals and Lantus 35u qam and qhs (this is the dosing patient endorses taking, office note states lantus 60u qam and qhs). She was diagnosed with T2DM at age 11. She was on metformin prior to . She had an admission in 2022 for DKA with pancreatitis that states T1DM in the discharge summary, but patient adamant that she has T2DM. -Current BMI 36 taking ASA -Hx of 2 prior sections at 37 weeks (first was for elevated bp's, 2nd was scheduled) -Anemia taking iron -Rubella non-immune Labs Maternal Blood Type: O Pos Labs: Negative: RPR, Hepatitis B, Rubella Titre, HIV, Chlamydia and Gonorrhea and Unknown: Group Beta Strep Narrative: HgbA1c on 06/08/24: 8 MSAFP negative CF negative Hgb 10.4 Review of Systems Review of Systems Narrative Review of Systems: Review of Systems Systems Reviewed: All systems reviewed, normal except as documented Constitutional Constitutional: Denies body ache(s), Denies chills, Denies fever(s) and Denies headache(s) ENT Ears, Nose, Mouth, and Throat: Denies headache(s) and Denies vertigo Cardiovascular Cardiovascular: Denies chest pain, Denies palpitations, Denies dyspnea and Denies syncope Respiratory Respiratory: Denies cough, Denies dyspnea Gastrointestinal Gastrointestinal: Denies nausea and Denies vomiting Neurologic Neurologic: Denies convulsions, Denies headache(s), Denies other visual distur bances, Denies syncope and Denies vertigo Past Medical History Family History OTHER FAMILY HX: non-contributory Surgical History SURGICAL: Positive Section (x2) Social History SOCIAL: No tobacco/ETOH/illicit drug use Past Medical History Comments PMH COMMENT: T2DM Obesity Hyperlipidemia Meds Home Medications and Allergies Home Medications ?Medication ?Instructions ?Recorded ?Confirmed ?Type mv-mn no.97-folic 180 mcg-dha 25 1 tab PO .q day 10/2011/24/24 History mg-herb no.293 25 mg chewable tablet (Alive Daily Support ) Allergies Allergy/AdvReac Type Severity Reaction Status Date / Time No Known Allergies Allergy Verified 11/26/24 16:40 OB Exam Physical Exam Vital signs: Pulse BP 86 137/76 H 11/26/24 18:41 11/26/24 18:41 Narrative: General: well developed, well nourished, no acute distress, conversant Cardiac: normal heart rate Lungs: breathing without distress Abdomen: soft, gravid, non-tender, no rebound or guarding Extremities: trace edema BLE Detailed Labor and Delivery Exam Membranes: intact Baseline heart rate: 140 monitor accelerations: 15x15 monitor decelerations: None nursing home variability: Moderate (11-25) Contraction frequency (min): no ctx pattern OB Assessment & Plan Assessment and Plan (1) Pre-eclampsia superimposed on chronic hypertension: Status: Acute Assessment and plan: Lisa is a 23yo with SIUP at 37&0wk with new diagnosis of CHTN with super-imposed pre-eclampsia WITH severe features. She had severe range bp's in triage, was treated with 2 pushes of IV labetalol as well as nifedipine 30mg XL PO and IV MgSO4 was initiated. No sx of pre-E otherwise. PIH labs show: Hgb 11.6, plt 216, creat 0.8, LFTs wnl, urine p:c 0.2. Benign exam. Reassuring assessment. PMhx/ significant for: -Transfer of care to Dr. Kate MATTHEWS taking labetalol 200mg PO BID -Pre-existing T2DM on Humalog 15u with meals and Lantus 35u qam and qhs (this is the dosing patient endorses taking, office note states lantus 60u qam and qhs). She was diagnosed with T2DM at age 11. She was on metformin prior to . She had an admission in 2022 for DKA with pancreatitis that states T1DM in the discharge summary, but patient adamant that she has T2DM. HgbA1c on 3: 8. -Current BMI 36, taking ASA -Hx of 2 prior sections at 37 weeks (first was for elevated bp's, 2nd was scheduled repeat) -Anemia taking iron -Rubella non-immune Plan: -Admit to L&D -Continue IV MgSO4 with neuro checks and Mg checks -NPO -Counseled/consented re: section. Discussed all r/b/a to include: bleeding (possible need for blood transfusion), infection (subcutaneous, deeper layers or uterine with possible need for prolonged admission or re-admission for IV antibiotics, I&D with wound packing, etc), injury to nearby structures such as bladder, bowel, ureters, blood vessels, nerves with possible need for re- operation, pain, injury to baby, hysterectomy, DVT/PE, . Answered all questions to patient and their support person's satisfaction. -IV abx ppx: 2g IV ancef -Nursing and anesthesia team aware of plan for section. Will proceed to OR when team is ready -Will halve insulin regimen after delivery (Note: patient signed a consent form for btl in office on Saturday, but it is in the scan queue and unavailable at this time, so cannot perform btl at time of . I discussed interval laparoscopic btl with her and she is understanding.) (2) History of delivery: Status: Acute (3) Pre-existing type 2 insulin treated diabetes mellitus during : Status: Acute (4) Obesity affecting in third trimester: Status: Acute (4) Obesity affecting in third trimester Qualifiers: Obesity type affecting : other obesity Qualified Code(s): O99.213 - Obesity complicating , third trimester; E66.89 - Other obesity not elsewhere classified
[2024-11-26] MEDS: MAGNESIUM SULF 20 GM IVPB 20 GM/500 ML BAG IV (18:54)
[2024-11-26] MEDS: ceFAZolin/D5W 2 GM IV 2 GM/100 ML BAG IV (19:17)
[2024-11-26] MEDS: CITRIC ACID/SODIUM CITR 15 ML UDC (BICITRA) 30 ML PO (19:17)
[2024-11-26] MEDS: FAMOTIDINE INJ 10 MG/ML VIAL 2 ML 20 MG IV (19:17)
[2024-11-26 19:59] LABS: Magnesium 3.0 mg/dL (1.6-2.6)
[2024-11-26 20:00] LABS: INR 0.9 (0.9-1.3); Partial Thromboplastin Time 25.4 Seconds (22.0-36.0); Prothrombin Time 9.7 Seconds (9.0-12.2)
--- NOTE | 2024-11-26 22:14 | ESOP_ITS ---
Operative Note - METER ENGINEER Procedure Date of procedure: 11/26/24 Procedure Performed: Repeat Low Transverse Section Indication: Lisa is a 23yo with SIUP at 37w0d who presented to L&D for routine antepartum testing. Upon presentation she was noted to have severe range blood pressures that were treated with 2 pushes of IV labetalol as well as nifedipine 30mg XL PO and IV MgSO4 was initiated. Given the new diagnosis of CHT N with super-imposed pre-eclampsia WITH severe features, immediate delivery was indicated. Pre-Op diagnosis: -CHTN (on labetalol 200mg PO BID) with superimposed pre-eclampsia with severe features -Hx of 2 prior sections at 37 weeks (first was for elevated bp's, 2nd was scheduled repeat) -Pre-existing T2DM on insulin -Current BMI 34 -Anemia -Rubella non-immune Post-Op diagnosis: -CHTN (on labetalol 200mg PO BID) with superimposed pre-eclampsia with severe features -Hx of 2 prior sections at 37 weeks (first was for elevated bp's, 2nd was scheduled repeat) -Pre-existing T2DM on insulin -Current BMI 34 -Anemia -Rubella non-immune Anesthesia type: Spinal Fluids: crystalloid Fluid amount (mL): 600 Urine output (mL): 500 Specimen: other (placenta and cord not sent to pathology) Estimated blood loss (ml): 650 Findings: Omentum adhesed broadly to the anterior abdominal wall. Scarring of bladder superiorly onto anterior uterus and thin lower uterine segment. Female infant in OT presentation, apgars 8/9, weight 6lb5oz. TOB 2037 on 11/26/24. Thin adhesions of right fallopian tube to anterior uterus, lysed. Complications: none Narrative: After obtaining informed consent, the patient was taken to the operating room. There was reassuring heart rate tracing prior. Spinal anesthesia was administered. A marlow catheter was in place secondary to IV MgSO4 infusion. Bilateral sequential compression devices were placed. She was then prepped and draped in the normal sterile fashion in the dorsal supine position with left lateral tilt. A timeout was performed to confirm patient name, date of , procedure and indication. The team was in agreement. Spinal anesthesia was found to be adequate using an Allis clamp. Anceph 2g IV x1 were given for prophylaxis. A Pfannenstiel skin incision was then made with the scalpel and carried through to the underlying layer of fascia. The fascia was incised in the midine and the incision was extended laterally with the Macedo scissors. The superior and inferior aspects of the fascial incision were then grasped with the Taryn clamps, elevated and the underlying rectus muscles were dissected off bluntly and sharply. The peritoneum was entered digitally and the rectus muscles were then in the midline. Dense adhesions of the omentum to the anterior abdominal wall were encountered which required tying off a section and lysing it to get an open window of entry. The peritoneal incision was then extended superiorly and inferiorly with good visualization of the bladder. An Chris retractor was placed. Dense scarring of bladder superiorly to anterior aspect of uterus noted. Thin lower uterine segment. The lower uterine segment was scored in a transverse fashion with the scalpel. The uterus was then entered bluntly and the incision was extended with traction with clear amniotic fluid noted. The infant's head was elevated to the level of the incision. Fundal pressure was applied. The head was delivered atraumatically in the OT position. The anterior shoulder, posterior shoulder and corpus were delivered without difficulty. The nose and mouth were suctioned with bulb suction and cord was clamped x2 and cut. Infant was vigorous. The infant was handed off to the awaiting nursing team. Cord blood obtained for typing. The placenta was then removed with uterine massage and cord traction. The uterus was exteriorized and cleared of all clot and debris. The uterine incision was repaired with 0-vicryl suture in a running locking fashion. A second layer of interrupted sutures using O-monocryl was used to closed the hysterotomy incision in an imbricating fashion. The uterine incision was inspected and hemostasis was noted. Good uterine tone achieved with IV pitocin. The posterior cul-de-sac was suctioned and the uterus returned to the abdomen. The gutters were cleared of all clot. Chris retractor was removed. The rectus muscles were reapproximated with 4 figure of 8 sutures using O-chromic. The fascia was reapproximated with 0-Vicryl suture in a running fashion. The subcutaneous tissue was then irrigated. Raghavendra's fascia was reapproximated using 3-0 vicryl suture in a running fashion in 2 layers. The skin was reapproximated with 4-0 monocryl suture in running subcuticular fashion. The incision was cleaned with a wet lap and dried with a dry lap. Xbmczbtyf-upouehbatfz-qwte bandage was applied overlying the incision and activated according to banquet server instructions. Fundus was firm at the umbilicus. Sponge, lap and needle counts were correct x2. Sweep within the cervix/TESHA revealed a modest amount of clot which was removed and bimanual massage was performed. I requested for hemabate 0.25mg IM to be given as well as TXA 1g IV. I also placed 800mcg cytotec NV. These measures were done for prophylaxis against future bleeding because the patient's IV MgSO4 will be continued until 24hr postop. The procedure was without complications and the patient tolerated the procedure well. She was taken to recover further on Labor and Delivery, in stable condition. Surgical staff Operation Date: 11/26/24 20:00 <No data on this case meets the specified criteria> Diagnosis Discharge Diagnosis (1) delivery delivered: Status: Acute (2) Pre-eclampsia superimposed on chronic hypertension: Status: Acute (3) Obesity affecting in third trimester: Status: Acute (4) Pre-existing type 2 insulin treated diabetes mellitus during : Status: Acute (5) History of delivery: Status: Acute Problem List Completed Was Problem List Reviewed/Reconciled?: Yes (3) Obesity affecting in third trimester Qualifiers: Obesity type affecting : other obesity Qualified Code(s): O99.213 - Obesity complicating , third trimester; E66.89 - Other obesity not elsewhere classified
[2024-11-27] VITALS (24 sets, daily range): BP systolic 108–150; BP diastolic 66–100; PULSE 76–93; RESP 14–95; TEMP 36.4–36.8; O2SAT 95–99
[2024-11-27] MEDS: OXYTOCIN in NS 20 units 20 UNIT/1,000 ML BAG 125 UNIT IV (01:15)
[2024-11-27] MEDS: KETOROLAC INJ 30 MG/ML VIAL IVP ×3 (01:15→16:05)
[2024-11-27] MEDS: MAGNESIUM SULF 20 GM IVPB 20 GM/500 ML BAG IV (06:22)
[2024-11-27 06:55] LABS: Basophils # (Auto) 0.0 Thou/mm3 (0.0-0.2); Basophils % (Auto) 0 % (0-2.5); Eosinophils # (Auto) 0.0 Thou/mm3 (0.0-0.5); Eosinophils % (Auto) 0 % (0-10); Hematocrit 31.7 % (36.0-46.0); Hemoglobin 10.6 g/dL (12.0-16.0); Immature Granulocytes Auto 0.06 Thou/mm3 (0.00-0.00); Lymphocytes # (Auto) 1.0 Thou/mm3 (1.0-4.8); Lymphocytes % (Auto) 6 % (10-50); Mean Corpuscular HGB Conc 33.4 g/dl (31.0-37.0); Mean Corpuscular Hemoglobin 31.2 pg (25.0-35.0); Mean Corpuscular Volume 93 fL (80-100); Monocytes # (Auto) 0.4 Thou/mm3 (0.0-0.8); Monocytes % (Auto) 2 % (0-12); Neutrophils # (Auto) 14.8 Thou/mm3 (1.8-7.7); Neutrophils % (Auto) 91 % (37-80); Nucleated Red Blood Cell # 0.00 Thou/mm3 (0.00-0.00); Nucleated Red Blood Cell % 0 /100 WBC (0); Platelet Count 193 Thou/mm3 (140-440); RDW Standard Deviation 43.7 fL (36.4-46.3); Red Blood Count 3.40 Miln/mm3 (4.00-5.20); White Blood Count 16.3 Thou/mm3 (3.6-11.0)
[2024-11-27 07:09] LABS: Anion Gap 13 (7-16); BUN/Creatinine Ratio 18 Ratio (12-20); Blood Urea Nitrogen 11 mg/dL (9-23); Calcium 8.1 mg/dL (8.3-10.6); Carbon Dioxide 19.2 mMol/L (20.0-31.0); Chloride 100 mMol/L (98-107); Creatinine (Component) 0.6 mg/dL (0.6-1.3); Estimated Creatinine Clearance 153.5 mL/min (>60); Glucose 204 mg/dL (74-106); Osmolality,Calculated 269 (275-295); Potassium 4.3 mMol/L (3.4-5.1); Sodium 132 mMol/L (136-145); eGFR > 60 See Note
[2024-11-27 08:18] LABS: Magnesium 4.4 mg/dL (1.6-2.6)
[2024-11-27] MEDS: INSULIN LISPRO (AdmeLOG) 1 UNIT/0.01 ML UNIT 8 UNIT SC ×3 (09:34→17:22)
[2024-11-27] MEDS: LABETALOL 100 MG TABLET 400 MG PO (09:39)
[2024-11-27] MEDS: DOCUSATE SOD 100 MG CAPSULE PO ×2 (09:40→21:17)
--- NOTE | 2024-11-27 09:47 | ESPR_ITS ---
Subjective Subjective Interval history: Patient is a 23-year-old G3 now P3 003 postop day 1 status post repeat at 2037 on 11/26/2024. This morning she is resting comfortably in bed. She had elevated blood pressures on admission and is on magnesium. All her care was with Dr. Love at the [facility] clinic. She has been diabetic since age 11 but is considered tho-priyyjd-ewehpnuam. She is on insulin currently 16 units NPH and 6 of regular with each meal. Today,the patient reports that she is sleepy on the magnesium no nausea or vomiting she is tolerating a general diet she is working on breast-feeding. Is in bed with Ko in place. The plan will be to discontinue her magnesium approximately 1600 if her blood pressures remain stable. She is on 400 mg of labetalol at this time. Exam Vital Signs Temp Pulse Resp BP Pulse Ox O2 Del Method 97.6 F 88 18 137/82 H 95 Room Air 11/27/24 03:00 11/27/24 09:39 11/27/24 06:00 11/27/24 09:39 11/27/24 06:00 11/27/24 06:00 Narrative Exam Patient is alert and oriented x 3. She is slightly flushed from the magnesium. Objective Labs 11/27/24 06:10 11/27/24 06:10 Labs: Laboratory Results - last 24 hr 11/26/24 11/27/24 19:20 06:10 WBC 16.3 H D RBC 3.40 L Hgb 10.6 L Hct 31.7 L MCV 93 MCH 31.2 MCHC 33.4 RDW Std Deviation 43.7 Plt Count 193 Neut % (Auto) 91 H Lymph % (Auto) 6 L [place] % (Auto) 2 Eos % (Auto) 0 Baso % (Auto) 0 Neut # (Auto) 14.8 H Lymph # (Auto) 1.0 [place] # (Auto) 0.4 Eos # (Auto) 0.0 Baso # (Auto) 0.0 Immature Gran # (Auto) 0.06 H Absolute Nucleated RBC 0.00 Immature Gran % 0 Nucleated RBC % 0 PT 9.7 INR 0.9 APTT 25.4 Sodium 132 L Potassium 4.3 Chloride 100 Carbon Dioxide 19.2 L Anion Gap 13 BUN 11 Creatinine 0.6 Estim Creat Clear Calc 153.5 eGFR > 60 BUN/Creatinine Ratio 18 Glucose 204 H D Calculated Osmolality 269 L Calcium 8.1 L D Magnesium 3.0 H 4.4 H Blood Type O Positive Antibody Screen NEGATIVE Crossmatch See Detail Blood Bank Wristband ID Yes Assessment & Plan Problem List (1) delivery delivered: Problem details: Patient is doing well. Pain is controlled. Status: Acute (2) Pre-eclampsia superimposed on chronic hypertension: Problem details: On labetalol 400 mg twice daily Status: Acute (3) Obesity affecting in third trimester: Status: Acute (4) Pre-existing type 2 insulin treated diabetes mellitus during : Problem details: Currently on Lantus 16 units nightly and 16 units in the morning on lispro 8 units 3 times daily Status: Acute (5) History of delivery: Status: Acute Plan Comment Plan Comment: DC magnesium at 1600. Ambulate, remove Ko, DC dressing. Watch blood pressures closely. Keep one IV line in in case we need to push blood pressure medications. Time Spent With Patient Time: Total time spent is greater than 50% in coordination of care (as documented) at patient's floor/unit and/or counseling patient: Time with patient: less than 15 minutes
[2024-11-27] MEDS: INSULIN GLARGINE (Lantus) 5 UNIT/0.05 ML (PER 5 UNITS) 16 UNIT SC ×2 (10:22→21:12)
[2024-11-27 13:44] LABS: Magnesium 4.5 mg/dL (1.6-2.6)
[2024-11-27 18:56] LABS: Magnesium 3.2 mg/dL (1.6-2.6)
[2024-11-27] MEDS: IBUPROFEN TAB 400 MG TABLET 800 MG PO (21:17)
--- NOTE | 2024-11-27 21:26 | PC.NURSE ---
Notify MD Hernandez of pt's BP 119/77 and heart rate of 91.MD Hernandez said to hold Labetalol.
[2024-11-28 00:34] VITALS: BP 122/77; PULSE 95; RESP 16; TEMP 36.7; O2SAT 96
[2024-11-28 04:00] VITALS: BP 120/83; PULSE 77; RESP 17; TEMP 36.9; O2SAT 100
[2024-11-28] MEDS: IBUPROFEN TAB 400 MG TABLET 800 MG PO (05:43)
[2024-11-28 05:47] LABS: Basophils # (Auto) 0.0 Thou/mm3 (0.0-0.2); Basophils % (Auto) 0 % (0-2.5); Eosinophils # (Auto) 0.1 Thou/mm3 (0.0-0.5); Eosinophils % (Auto) 1 % (0-10); Hematocrit 27.0 % (36.0-46.0); Hemoglobin 9.1 g/dL (12.0-16.0); Immature Granulocytes Auto 0.04 Thou/mm3 (0.00-0.00); Lymphocytes # (Auto) 2.9 Thou/mm3 (1.0-4.8); Lymphocytes % (Auto) 29 % (10-50); Mean Corpuscular HGB Conc 33.7 g/dl (31.0-37.0); Mean Corpuscular Hemoglobin 31.7 pg (25.0-35.0); Mean Corpuscular Volume 94 fL (80-100); Monocytes # (Auto) 0.6 Thou/mm3 (0.0-0.8); Monocytes % (Auto) 7 % (0-12); Neutrophils # (Auto) 6.2 Thou/mm3 (1.8-7.7); Neutrophils % (Auto) 63 % (37-80); Nucleated Red Blood Cell # 0.00 Thou/mm3 (0.00-0.00); Nucleated Red Blood Cell % 0 /100 WBC (0); Platelet Count 199 Thou/mm3 (140-440); RDW Standard Deviation 45.2 fL (36.4-46.3); Red Blood Count 2.87 Miln/mm3 (4.00-5.20); White Blood Count 9.8 Thou/mm3 (3.6-11.0)
[2024-11-28] MEDS: INSULIN LISPRO (AdmeLOG) 1 UNIT/0.01 ML UNIT 8 UNIT SC (08:00)
[2024-11-28] MEDS: INSULIN GLARGINE (Lantus) 5 UNIT/0.05 ML (PER 5 UNITS) 16 UNIT SC (08:01)
[2024-11-28] MEDS: DOCUSATE SOD 100 MG CAPSULE PO (08:01)
[2024-11-28 08:19] VITALS: BP 106/69; PULSE 76; RESP 16; TEMP 37; O2SAT 98
--- NOTE | 2024-11-28 08:43 | ESPR_ITS ---
Subjective Subjective Interval history: The patient is a 23-year-old G3 now P3003 postop day #2 status post repeat C- section. Tonight at 2200 will be 48 hours. She is resting comfortably and would like to go home. She has been zle-ndbclvj-bzyehttpz diabetic since age 11 she has been on metformin prior to . Currently she is on 16 units of long-acting twice a day and 8 units of short acting with each meal. Patient had some elevated blood pressures when she came until delivery but her blood pressures have been fine. She was on 400 mg of labetalol prior to delivery. We will send her home on 200mg. She sees Dr. Love at the [facility] women[facility] and will follow-up there in a week. Exam Vital Signs Temp Pulse Resp BP Pulse Ox O2 Del Method 98.6 F 76 16 106/69 98 Room Air 11/28/24 08:19 11/28/24 08:19 11/28/24 08:19 11/28/24 08:19 11/28/24 08:19 11/28/24 08:19 Narrative Exam Patient is alert and oriented x 3 in no apparent distress. She is resting comfortably breast-feeding the baby. Her dressing is still in place. Her fundus is firm extremities show no significant edema or erythema Objective Labs 11/28/24 05:22 11/27/24 06:10 Labs: Laboratory Results - last 24 hr 11/27/24 11/27/24 11/28/24 13:01 18:24 05:22 WBC 9.8 D RBC 2.87 L Hgb 9.1 L Hct 27.0 L MCV 94 MCH 31.7 MCHC 33.7 RDW Std Deviation 45.2 Plt Count 199 Neut % (Auto) 63 Lymph % (Auto) 29 [place] % (Auto) 7 Eos % (Auto) 1 Baso % (Auto) 0 Neut # (Auto) 6.2 Lymph # (Auto) 2.9 [place] # (Auto) 0.6 Eos # (Auto) 0.1 Baso # (Auto) 0.0 Immature Gran # (Auto) 0.04 H Absolute Nucleated RBC 0.00 Immature Gran % 0 Nucleated RBC % 0 Magnesium 4.5 H 3.2 H Assessment & Plan Problem List (1) delivery delivered: Problem details: Patient is doing well. Pain is controlled. Will discharged home later today. Discharge instructions given. Status: Acute (2) Pre-eclampsia superimposed on chronic hypertension: Problem details: On labetalol 400 mg twice daily. This has been held twice during her admission. Home on 200 labetalol once a day. Recheck blood pressure in 1 week in the office. Status: Acute (3) Obesity affecting in third trimester: Status: Acute (4) Pre-existing type 2 insulin treated diabetes mellitus during : Problem details: Currently on Lantus 16 units nightly and 16 units in the morning on lispro 8 units 3 times daily. Will send home on this dose. Will follow-up in a week. Patient will likely need to decrease her insulin dose . Status: Acute (5) History of delivery: Status: Acute Time Spent With Patient Time: Total time spent is greater than 50% in coordination of care (as documented) at patient's floor/unit and/or counseling patient: Time with patient: less than 15 minutes
[2024-11-28 09:02] VITALS: BP 106/69; PULSE 76
--- NOTE | 2024-11-28 09:03 | PC.NURSE ---
0900: RN EDUCATED PATIENT ON NON IMMUNE RUBELLA STATUS OFFERED VACCINE TO PATIENT UPON DISCHARGE PATIENT DECLINED TO RECEIVE VACCINE AT THIS TIME.
[2024-11-28] MEDS: HYDROcodone/APAP 5/325 TABLET 1 TAB PO (09:05)
--- NOTE | 2024-11-28 09:10 | ESDS_ITS ---
DS: Providers Provider Date of admission: 11/26/24 17:47 Primary care physician: Sapna Albert PA-C Admitting Provider: Dilma Mcclellan MD Attending Provider on Admission: Julio Love MD Consults: 11/26/24 21:45 Referral Routine Comment: Attending Provider on DC: Julee Hernandez MD (OB Clinic) Discharging Provider: Julee Hernandez MD (OB Clinic) Anticipated date of discharge: 11/28/24 DS: Diagnosis Discharge Diagnosis (1) delivery delivered: Status: Acute Assessment & Plan: Discharged home postoperative day #2 in stable condition. Discharge instructions given. (2) Pre-existing type 2 insulin treated diabetes mellitus during : Status: Acute Assessment & Plan: Patient was on metformin prior to . She will go home on 16 units NPH in the morning and 16 units NPH at night. She will manage 8 of lispro with each meal. (3) Pre-eclampsia superimposed on chronic hypertension: Status: Acute Assessment & Plan: Patient on 400 mg of labetalol during her stay. This was held twice. Will send home on 200 mg labetalol. Return to the office in [address] Love for a blood pressure check. Problem List Completed Was Problem List Reviewed/Reconciled?: Yes Summary/Hosp Course Brief History: The patient is a 23-year-old -0-0-2 who presented patient for routine antepartum testing. No ctx, lof or vaginal bleeding. Normal movement. No BAER, vision changes, or RUQ pain. On presentation, patient had severe range blood pressures on admission. She is chronic hypertension on 200 mg of labetalol p.o. twice daily. The patient also has pre-existing T2DM on Humalog 15u with meals and Lantus 35u qam and qhs (this is the dosing patient endorses taking, office note states lantus 60u qam and qhs). She was diagnosed with T2DM at age 11. She was on metformin prior to . She had an admission in 2022 for DKA with pancreatitis that states T1DM in the discharge summary, but patient adamant that she has T2DM. Her Current BMI is 36. Patient was admitted 11/26/[address] Mcclellan and un derwent a repeat at 2200 on 11/26/2024. Please see history and physical for further details. Hospital course: Patient underwent an uncomplicated repeat low-transverse section by Dr. Mcclellan 11/26/2024 at 2200. Please see op report for further details. Postop day 1 patient was doing well. Her magnesium was discontinued at 24 hours . She was up ambulating and tolerating a general diet. On postoperative day #2 patient's blood pressures were under good control. Her labetalol had been held twice. Her blood sugars were under control with 16 units of the NPH at night and in the morning and 8 units of regular with each meal. Patient desired to go home postoperative day #2 and was discharged home in stable condition. Predelivery hemoglobin was 11.6. Postdelivery hemoglobin 9.1. Peripartum Data Delivery Method: Low Transverse Procedures: Procedures Operation Date: 11/26/24 20:00 Actual Procedure Side Surgeon p in OB Dilma Mcclellan MD complications: none Status at Discharge Cognitive/behavioral status at discharge: Patient is alert and oriented x 3 in no apparent distress Functional status at discharge: independent ambulation Overall status at discharge: patient is progressing back to baseline Time Spent with Patient Time attestation: Total time spent providing and/or coordinating discharge services: Time spent: Less than 30 minutes Specific discharge activities: Pelvic rest x 6 weeks. No heavy lifting or heavy exercise x 6 weeks. Follow-up in 1 week for blood pressure check. Exam Vital Signs Temp Pulse Resp BP Pulse Ox O2 Del Method 98.6 F 76 16 106/69 98 Room Air 11/28/24 08:19 11/28/24 09:02 11/28/24 08:19 11/28/24 09:02 11/28/24 08:19 11/28/24 08:19 Narrative Exam Fundus firm nontender incision clean dry and intact. Extremities showed no significant edema or erythema. Discharge Plan Plan Patient Disposition: HOME (Self Care) Disposition Comment: Stable Patient condition on transfer: Stable Prescriptions/Referrals Prescriptions/Med Rec: New hydrocodone-acetaminophen 5-325 mg Tablet 1 tab PO Q6H MDD 4 tablets PRN (Reason: Patient rated pain 7 to 8) 7 Days Qty: 12 0RF docusate sodium 100 mg Capsule 100 mg PO BID 10 Days Qty: 20 0RF ibuprofen 800 mg tablet 800 mg PO Q8HR 10 Days Qty: 30 0RF insulin lispro 100 unit/mL Solution 8 unit SCi TIDWMEAL 30 Days Qty: 7.2 0RF labetalol 400 mg tablet 400 mg PO BID 30 Days Qty: 60 0RF Lantus 16 units SCi HS 30 Days Qty: 10 0RF Lantus 16 units SCi QAM 30 Days Qty: 10 0RF No Action Alive Daily Support 180 mcg-25 mg- 25 mg tablet,chewable 1 tab PO .q day insulin glargine [Lantus Solostar U-100 Insulin] 100 unit/mL (3 mL) insulin pen 60 unit subcut QPM 30 Days Qty: 18 1RF Patient Comments: 30 with breakfast and 30 u with dinner insulin lispro [Humalog KwikPen Insulin] 100 unit/mL insulin pen 15 unit subcut TID 30 Days Qty: 13.5 2RF metformin 500 mg tablet 500 mg PO BIDWMEAL 30 Days Qty: 60 2RF (DME) Accu-Chek Joi Plus test strp Strip See Rx Instructions .Route Qty: 50 2RF Rx Instructions: As directed (DME) Acti-Philip Lancets 17 gauge misc See Rx Instructions .Route Qty: 100 2RF Rx Instructions: As directed propranolol 10 mg Tablet 10 mg PO QID 30 Days Qty: 120 2RF Referrals: Sapna Albert PA-C [Primary Care Provider] - Patient/Caregiver Discharge Instructions Discharge Activity: activity as tolerated and other Other Discharge Activity Instructions:: vaginal rest and no heavy lifting more than 10 pounds for 6 [address] while taking narcotic. keep incision clean and dry, do not submerge Other Discharge Diet Instructions: diabetic diet Education Materials: Understanding Preeclampsia, After a , : Caring for Yourself Print Language: Kinyarwanda Activity Restrictions/Additional Instructions: follow up within 4 days of delivery with Dr[address] Love for blood pressure check, call clinic for appointment Stand Alone Forms: Sweta Award Info., Patient Portal Info Letter Discharge Order Discharge Orders: Discharge (Routine); Ordered 11/28/24 Ordered By: Julee Hernandez (OB Clinic) Planned Discharge Date 11/28/24
== END 2024-11-28 11:00 | disposition home or self-care (01) | DRG 540 ==
LOC: S4SX 19:16 → S4NX 20:37
PROVIDERS: Obstetrics & Gynecology; Admitting Provider Obstetrics & Gynecology; PCP Specialist; Visit Provider Obstetrics & Gynecology
PROC: 10D00Z1 Extraction of Products of Conception, Low, Open Approach (ICD-10-PCS; CPT 59514; principal; 2024-11-26 20:00)
DX: O34.211 Maternal care for low transverse scar from previous cesarean delivery (principal); O11.4 Pre-existing hypertension with pre-eclampsia, complicating childbirth; O24.12 Pre-existing type 2 diabetes mellitus, in childbirth; E11.9 Type 2 diabetes mellitus without complications; O99.02 Anemia complicating childbirth; O99.214 Obesity complicating childbirth; Z37.0 Single live birth; Z3A.37 37 weeks gestation of pregnancy; Z79.4 Long term (current) use of insulin; Z78.9 Other specified health status
CPT/HCPCS: 36415; 59409; 80048; 83735; 85025; 85610; 85730; 86850; 86900; 86901; 86923; 94762; A4314; A4649; J0689; J1100; J1815; J1885; J2274; J2405; J2590; J3010; J3475; J3490; S0191; A9270; J1805; J2270

== ENCOUNTER 2024-12-09 09:07 | Outpatient (AMB) | payer MEDICAID, SELFPAY ==
--- NOTE | 2024-12-09 09:16 | AMBOBPPN_ITS ---
Vital Signs 12/09/24 09:17 Height 1.55 m Height Method Stated Weight 80.343 kg Weight Measurement Method Standing Scale BMI 33.5 BP 135/89 H Blood Pressure Source Automatic Cuff Blood Pressure Location Left Upper Arm Position Sitting Respiration 20 Pulse 102 H Pulse Source Monitor Temp 98.4 F Temp Source Oral Pulse Oximetry (%) 98 Oxygen Delivery Method Room Air Allergies/Home Meds Allergies & Medications Allergies No Known Allergies Allergy (Verified 12/09/24 09:23) Medication Reconciliation metformin 500 mg tablet 500 mg PO BIDWMEAL 30 days #60 tabs 06/14/21 [Rx Confirmed 12/09/24] Held on 11/26/24. Instructions: Doctor's Order blood sugar diagnostic (Accu-Chek Joi Plus test strips) #50 ea 08/25/22 [Rx Confirmed 12/09/24] lancets 17 gauge (Acti-Philip Lancets) #100 ea 08/25/22 [Rx Confirmed 12/09/24] propranolol 10 mg tablet 10 mg PO QID 30 days #120 tabs 08/25/22 [Rx Confirmed 12/09/24] Held on 11/26/24. Instructions: Doctor's Order insulin glargine 100 unit/mL (3 mL) subcutaneous pen (Lantus Solostar U-100 Insulin) 60 unit (0.6 mL) subcut QPM 30 days #18 mL 10/20/24 [Rx Confirmed 12/09/24] insulin lispro 100 unit/mL subcutaneous pen (Humalog KwikPen (U-100) Insulin) 15 unit (0.15 mL) subcut TID 30 days #13.5 mL 10/20/24 [Rx Confirmed 12/09/24] mv-mn no.97-folic 180 mcg-dha 25 mg-herb no.293 25 mg chewable tablet (Alive Daily Support ) 1 tab PO .q day 10/20/24 [History Confirmed 12/09/24] Lantus 16 units SCi HS 30 days #10 mL 11/26/24 [Rx Confirmed 12/09/24] Lantus 16 units SCi QAM 30 days #10 mL 11/26/24 [Rx Confirmed 12/09/24] insulin lispro 100 unit/mL subcutaneous solution 8 unit (0.08 mL) SCi TIDWMEAL 30 days #7.2 mL 11/26/24 [Rx Confirmed 12/09/24] labetalol 400 mg tablet 400 mg PO BID 30 days #60 tabs 11/26/24 [Rx Confirmed 12/09/24] Intake Visit Data Collection New Patient or Established: Established Patient (seen at [facility] within 3 years) Reason for Visit:: Seen by Clinical Staff ONLY (RN/MA): No 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 Do You Feel Safe at Home: Yes Authorities Contacted: N/A PCP or OBGYN visit in last 3 months: Yes Hx Now: No Are you currently on any form of Control: No Pain Present Currently: No Pain Scale Used: Ambrocio-Washburn/Numerical Pain scale:: 0 Smoking Status Smoking Status: Never smoker 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: Past Medical History Past Medical History: No Hx Neurological Disorders, No Hx Hypothyroidism, No Hx Hyperthyroidism, No Hx Breast Cancer, No Hx Cardiac Disorders, No Hx Hypertension, No Hx Cancer, No Hx Blood Disorders, No Hx Anemia, No Hx Gastrointestinal Disorders, No Hx Renal Disease, No Hx Diabetes Mellitus Type 1, Yes Hx Diabetes Mellitus Type 2, No Hx Tubal Ligation and No Hx Hysterectomy Questionnaires Covid-19 Vaccine Questionnaire Has patient been vacinated for Covid-19 Have you been vacinated for Covid-19: Yes Social History Living Situation History Lives With: Family Housing: House Tobacco History Smoking Status: Never smoker Second Hand Smoke Exposure: No Alcohol History Alcohol Intake: Never Domestic Abuse History Do You Feel Safe at Home: Yes EPDS - PP Depression Screening [place] Pospartum Depression Screen I have been able to laugh and see the funny side of things: (0) As much as I always could I have looked forward with enjoyment to things: (0) As much as I ever did I have blamed myself unnecessarily when things went wrong: (0) No, never I have been anxious or worried for no good reason: (0) No, not at all I have felt scared or panicky for no very good reason: (0) No, not at all Things have been getting on top of me: (0) No, I have been coping as well as ever I have been so unhappy that I have had difficulty sleeping: (0) No, not at all I have felt sad or miserable: (0) No, not at all I have been so unhappy that I have been crying: (0) No, never The thought of harming myself has occurred to me: (0) Never EPDS completed yes Care OB Visit Log OB Flowsheet Initial Weight: Not Recorded Date -?-?-?-?-?-?-?-?-?-?-?-?- EGA Weight BP Alb Glu CTX Pres Fundal ht FHR Mov Dilation Station Effacement Hx Notes Visit Note 10/08/24 -?-?-?-?-?-?-?-?-?-?--?-?- 30w 0d 83.631 kg 136/81 absent 30 150 ac tive 30w0d, , hx of 2 prior C- sections, DM2 on insulin (meal-time 12u TID, Lantus 45u QHS), HTN on labetalol 100 BID + ASA. Reports good FM, no CTX/LOF/VB. FHR 150. BG logs: fasting to 140, postprandial 150?160. Plan: inc rease Lantus to 50u QHS, continue meal insulin, f/u in 1 week, continue twice weekly monitoring, plan C/S 37?38w, continue labetalol, ASA, vitamins, f/u [facility]. Rx sent to [facility]. 10/14/24 -?-?-?-?-?-?-?-?-?-?-?-?- 30w 6d 81.873 kg 115/75 absent unknown 32 155 active Lisa Martinez, , presents at 30w6d for routine care. No CTX, LOF, VB, FM good. Denies BAER, VC, epigastric pain. GDM on insulin with recent dose increase; reports improved sugars now >113. Injections done correctly with minimal bruising. FHR 155. CBC and RPR ordered. Twice weekly monitoring to begin. Plan delivery at 38w if well-controlled, or 37w if not. F/u 1wk with glucose logs, noting any spikes and food intake. 10/20/24 -?-?-?-?-?-?-?-?-?-?-?-?- 31w 5d 83.121 kg 124/83 absent unknown 32 150 active GDM on insulin, 31w5d. FM+, FHR 150. Fasting BG 113, postprandial 156. Plan: Increase insulin to 60u qHS, 15u meals (? to 12u if lows), await anesthesia appt, f/u 2w, monitor FM, RX sent. JAMES Calculator Estimated Delivery Date Method Current WG Current Estimate 12/17/24 LMP (Certain) 38w 6d Notes Visit Date: 10/20/24 Last Updated by: Julio Love MD - Increase nighttime insulin dose from 50 units to 60 units - Increase mealtime insulin dose from 12 units to 15 units HPI Interval History: Lisa Martinez presents for a post-operative visit following a performed on November 26, 2024, approximately 2 weeks post-surgery. She reports that her recovery has been progressing well overall. The patient denies any bladder problems or constipation since the surgery. The incision site has been healing appropriately for a couple of days. Lisa does not report any significant pain or discomfort related to the incision. She inquired about driving, indicating a desire to resume normal activities. She has an obstetric history of G1 T1 L1, with delivery via on November 26, 2024. The patient has a child at home. 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 Exam General General Appearance: alert, in no apparent distress and healthy appearing Head Head exam: atraumatic Neck Neck exam: Present normal inspection and trachea midline Chest Chest inspection: Present normal inspection and symmetric chest wall rise External exam: Present normal external exam; Absent tenderness Neuro Neurological exam: Present oriented X3 Psych Psychiatric exam: Present normal affect and normal mood Office Procedures OB Clinic LOC & Office Proc's Nursing/Assessment Patient Status: Established Patient OB Clinic Nursing Assessment: Medication Reconciliation, Update PMH in EMR and Vital Signs OB Clinic Coordination of Care: Complex Care and Chronic Disease 1-5, Consent ,records obtained, informed consent, Education Simp Pt/Fam, 1 Ins Authorization, Lab and Imaging orders, Results/Orders obtained and Staff clarify orders Established Patient Charge Established Patient Point Assignment: 120 Established Patient Point Charge: EP Level 4 (120-155) Assessment & Plan Diagnosis / Problem List (1) delivery delivered: Status: Acute Plan: Status post section: - Patient is 13 days status post section performed by Dr. Mcclellan on 11/26/2024. - Reports doing well overall with no reported complications. - Denies bladder problems or constipation. - Physical examination of incision site reveals good healing progress without signs of infection or other complications. Plan: - Continue post-operative care: leave incision site open to air for better healing. - Advised to wear abdominal binder over clothing to avoid rubbing on incision site. - Activity restrictions: avoid lifting more than 25 pounds. - Cleared to resume driving with use of abdominal binder. - Follow-up appointment scheduled in 1 month. - WIC form to be completed and provided to patient
[2024-12-09 09:17] VITALS: BP 135/89; PULSE 102; RESP 20; TEMP 36.9; O2SAT 98; BMI 33.5
== END 2024-12-09 09:43 | disposition home or self-care (01) ==
LOC: HODSOBC 09:07
PROVIDERS: PCP Specialist; Referring Provider Specialist; Supervising Provider Obstetrics & Gynecology; Visit Provider Obstetrics & Gynecology
DX: Z39.2 Encounter for routine postpartum follow-up (principal)
CPT/HCPCS: 99214; G0463

== ENCOUNTER 2025-01-13 08:57 | Outpatient (AMB) | payer MEDICAID, SELFPAY ==
--- NOTE | 2025-01-13 09:02 | AMBOBPPN_ITS ---
Vital Signs 01/13/25 09:06 Height 1.55 m Height Method Measured Weight 83.064 kg Weight Measurement Method Standing Scale BMI 34.5 BP 132/87 H Blood Pressure Source Automatic Cuff Blood Pressure Location Left Upper Arm Position Sitting Respiration 16 Pulse 81 Pulse Source Monitor Temp 98.3 F Temp Source Oral Pulse Oximetry (%) 98 Oxygen Delivery Method Room Air Allergies/Home Meds Allergies & Medications Allergies No Known Allergies Allergy (Verified 01/13/25 09:08) Medication Reconciliation blood sugar diagnostic (Accu-Chek Joi Plus test strips) #50 ea 08/25/22 [Rx Confirmed 01/13/25] lancets 17 gauge (Acti-Philip Lancets) #100 ea 08/25/22 [Rx Confirmed 01/13/25] propranolol 10 mg tablet 10 mg PO QID 30 days #120 tabs 08/25/22 [Rx Confirmed 01/13/25] Held on 11/26/24. 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 Do You Feel Safe at Home: Yes Authorities Contacted: N/A PCP or OBGYN visit in last 3 months: Yes Hx Now: Yes Are you currently on any form of Control: No Pain Present Currently: No Pain Scale Used: Ambrocio-Washburn/Numerical Pain scale:: 0 Smoking Status Smoking Status: Never smoker 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 History Past Medical History: No Hx Neurological Disorders, No Hx Hypothyroidism, No Hx Hyperthyroidism, No Hx Breast Cancer, No Hx Cardiac Disorders, No Hx Hypertension, No Hx Cancer, No Hx Blood Disorders, No Hx Anemia, No Hx Gastrointestinal Disorders, No Hx Renal Disease, No Hx Diabetes Mellitus Type 1, Yes Hx Diabetes Mellitus Type 2, No Hx Tubal Ligation and No Hx Hysterectomy Questionnaires Covid-19 Vaccine Questionnaire Has patient been vacinated for Covid-19 Have you been vacinated for Covid-19: Yes Social History Living Situation History Lives With: Family Housing: House Tobacco History Smoking Status: Never smoker Second Hand Smoke Exposure: No Alcohol History Alcohol Intake: Never Domestic Abuse History Do You Feel Safe at Home: Yes EPDS - PP Depression Screening [place] Pospartum Depression Screen I have been able to laugh and see the funny side of things: (0) As much as I always could I have looked forward with enjoyment to things: (0) As much as I ever did I have blamed myself unnecessarily when things went wrong: (0) No, never I have been anxious or worried for no good reason: (0) No, not at all I have felt scared or panicky for no very good reason: (0) No, not at all Things have been getting on top of me: (0) No, I have been coping as well as ever I have been so unhappy that I have had difficulty sleeping: (0) No, not at all I have felt sad or miserable: (0) No, not at all I have been so unhappy that I have been crying: (0) No, never The thought of harming myself has occurred to me: (0) Never EPDS completed yes Care OB Visit Log OB Flowsheet Initial Weight: Not Recorded Date -?-?-?-?-?-?-?-?-?-?-?-?- EGA Weight BP Alb Glu CTX Pres Fundal ht FHR Mov Dilation Station Effacement Hx Notes Visit Note 10/08/24 -?-?-?-?-?-?-?-?-?-?-?-?- 30w 0d 83.631 kg 136/81 absent 30 150 ac tive 30w0d, , hx of 2 prior C- sections, DM2 on insulin (meal-time 12u TID, Lantus 45u QHS), HTN on labetalol 100 BID + ASA. Reports good FM, no CTX/LOF/VB. FHR 150. BG logs: fasting to 140, postprandial 150?160. Plan: in crease Lantus to 50u QHS, continue meal insulin, f/u in 1 week, continue twice weekly monitoring, plan C/S 37?38w, continue labetalol, ASA, vitamins, f/u [facility]. Rx sent to [facility]. 10/14/24 -?-?-?-?-?-?-?-?-?-?-?-?- 30w 6d 81.873 kg 115/75 absent unknown 32 155 active Lisa Martinez, , presents at 30w6d for routine care. No CTX, LOF, VB, FM good. Denies BAER, VC, epigastric pain. GDM on insulin with recent dose increase; reports improved sugars now >113. Injections done correctly with minimal bruising. FHR 155. CBC and RPR ordered. Twice weekly monitoring to begin. Plan delivery at 38w if well-controlled, or 37w if not. F/u 1wk with glucose logs, noting any spikes and food intake. 10/20/24 -?-?-?-?-?-?-?-?-?-?-?-?- 31w 5d 83.121 kg 124/83 absent unknown 32 150 active GDM on insulin, 31w5d. FM+, FHR 150. Fasting BG 113, postprandial 156. Plan: Increase insulin to 60u qHS, 15u meals (? to 12u if lows), await anesthesia appt, f/u 2w, monitor FM, RX sent. 11/17/24 -?-?-?-?-?-?-?-?-?-?-?-?- 35w 5d 87.146 kg 128/80 absent unknown 36 135 active - Diabetes management: - Current insulin regimen: 60 units at bedtime and 15 units with meals - Fasting blood sugars: 117, 110, 126 mg/dL, reported as still running a little high - Mealtime blood sugar numbers reporte d as pretty good - Hypertension: - [facility] - Blood pressure was noted to be high, but not too high - Currently taking labetalol for blood pressure management - Increase insulin dosage to 70 units total, split into 35 units in the morning and 35 units at night - Continue current mealtime insulin dosa ge - Schedule at 38 weeks maximum due to diabetes management - Perform Group B Streptococcus (GBS) sw ab - Book 01/04@07:30 - Monitor blood pressure closely due to recent high readings in hospital 11/24/24 -?-?-?-?-?-?-?-?-?-?-?-?- 36w 5d 86.863 kg 135/84 absent unknown 36 150 active - Patient is scheduled for a next week Saturday. - This is her third section. - She has been attending Non-Stress Test (NST) appointments: - Last attended on Saturday and the prev ious Saturday - Received a letter from the hospital indicating she missed the last 2 appointments - Patient is considering tubal ligation during the . - scheduled for next Saturday - Patient to check in at 5:30 AM on the day of - No food, drink, or medications after 1 0 PM the night before - Continue attending NST (non-stress rubia t) appointments twice a week - Patient's partner to obtain disability paperwork from [facility] office - Patient to complete 1st and 3rd pages of disability paperwork, physician to complete 2nd page - Consent for tubal ligation to be backd ated to October (30 days prior to surgery) - No further appointments at the clinic before [facility] Calculator Estimated Delivery Date Method Current WG Current Estimate 12/17/24 LMP (Certain) 43w 6d Notes Visit Date: 10/20/24 Last Updated by: Julio Love MD - Increase nighttime insulin dose from 50 units to 60 units - Increase mealtime insulin dose from 12 units to 15 units Office Procedures OBC Clinic LOC & Office Proc's Nursing/Assessment Patient Status: Established Patient OB Clinic Nursing Assessment: Medication Reconciliation, Update PMH in EMR and Vital Signs OB Clinic Coordination of Care: Complex Care and Chronic Disease 1-5, Consent,records obtained, informed consent, Education Simp Pt/Fam, Lab and Imaging orders, Results/Orders obtained and Staff clarify orders Established Patient Charge Established Patient Point Assignment: 105 Established Patient Point Charge: EP Level 3 (80-115) Assessment & Plan Diagnosis / Problem List (1) Encounter for initial prescription of contraceptive pills: Status: Acute
[2025-01-13 09:06] VITALS: BP 132/87; PULSE 81; RESP 16; TEMP 36.8; O2SAT 98; BMI 34.5
== END 2025-01-13 09:32 | disposition home or self-care (01) ==
LOC: HODSOBC 08:57
PROVIDERS: Supervising Provider Obstetrics & Gynecology; Visit Provider Obstetrics & Gynecology
DX: Z30.011 Encounter for initial prescription of contraceptive pills (principal)
CPT/HCPCS: 99213; G0463